=== PATIENT | male | born 1955 | race African-American/Black ===

== ENCOUNTER 2017-06-05 20:37 | Observation (INO) ==
[2017-06-05] MEDS ORDERED: ALUM/MAG/SIMETH/LIDO VISC 1:1 30 ML BOTTLE PO STA (21:01)
[2017-06-05] MEDS ORDERED: ONDANSETRON 4 MG/2 ML VIAL IV STA (21:01)
[2017-06-05] MEDS ORDERED: SODIUM CHLORIDE 0.9% 1,000 ML IV STA (21:01)
[2017-06-05] MEDS ORDERED: PANTOPRAZOLE 40 MG VIAL IV STA (21:01)
[2017-06-05] MEDS ORDERED: HYDROmorphone 2 MG/1 ML VIAL IV STA (21:01)
[2017-06-05 21:12] LABS: Basophils % 0.7 % (0.0-0.8); Eosinophils # 0.1 10*3/uL (0.0-0.87); Hematocrit 26.2 VOL% (42.0-52.0); Hemoglobin 7.8 GM/DL (14.0-18.0); Immature Granulocytes % 0.2 %; Immature Granulocytes Absolute 0.01 #; Lymphocytes # 1.8 10*3/uL (1.4-4.0); Lymphocytes % 39.7 % (21.2-54.2); Mean Corpuscular HGB Conc 29.8 GM/DL (32-36); Mean Corpuscular Hemoglobin 23 PG (27-34); Mean Corpuscular Volume 76.4 FL (87-102); Monocytes # 0.6 10*3/uL (0.11-0.8); Monocytes % 13.6 % (1.7-12.7); Neutrophils % 43.8 % (38.7-73.9); Platelet Count 332 T/CUMM (130-400); Red Blood Count 3.43 MC/CUMM (3.8-5.5); Red Cell Distribution Width 20.3 % (9.3-17.3); White Blood Count 4.5 T/CUMM (4-12)
[2017-06-05] MEDS ORDERED: ONDANSETRON 4 MG/2 ML VIAL ONE (21:15)
[2017-06-05] MEDS ORDERED: ALUM/MAG/SIMETH/LIDO VISC 1:1 30 ML BOTTLE PO ONE (21:15)
[2017-06-05] MEDS ORDERED: PANTOPRAZOLE 40 MG VIAL IV ONE (21:15)
[2017-06-05] MEDS ORDERED: SODIUM CHLORIDE 0.9% 0 ML IV ONE (21:15)
[2017-06-05] MEDS ORDERED: HYDROmorphone 2 MG/1 ML VIAL ONE (21:15)
[2017-06-05 21:22] LABS: Apearance,Urine CLEAR (Clear); Bacteria,Urine Occasional /HPF (Few); Bilirubin,Urine Negative (Negative); Blood, Urine Negative (Negative); Glucose,Urine (UA) Negative (Negative); Hyaline Casts,Urine 34 /LPF (0-3); Ketones,Urine Negative (Negative); Mucus,Urine Occasional /LPF (Occasional); Nitrite,Urine Negative (Negative); Protein,Urine Negative; Squamous Epithelial Cell,Urine Occasional /HPF (0-10); Urine Color Yellow (Yellow); Urine Specific Gravity 1.008 (1.001-1.035); Urine Urobilinogen < 2.0 EU/DL (0.2-1.0); WBC,Urine <1 /HPF (0-6)
--- NOTE | 2017-06-05 21:26 | Emergency Department Note ---
Jarod Wyman Brittany, am scribing for, and in the presence of, Amarjit Geronimo MD 21:06. Juanpablo Wyman Charles R, MD, personally performed the services described in this documentation, ascribed by Tiesha Olivera in my presence, and it is both accurate and complete . Arrival - Arrival Chief Complaint: Abdominal / Flank Pain Stated Complaint: Abd Pain ED Nursing Triage Note: C/C abd pain, right side numbness, chest pain for 3 days. ETOH+ Noncompliant with meds Mode of Arrival: Stretcher Limitations: No Limitations Source: Patient, RN Notes Reviewed Time Seen by Provider: 06/05/17 20:51 - History of Present Illness HPI Narrative: Patient is a 61 y/o black male presenting to the ED via EMS with c/o abdominal pain and chest pain which began 3 days ago. Patient reports also being unable to keep anything down. Patient notes having had some hematemesis and righg sided numbness. He states that he needs to be admitted for overnight admission to show us that he has been vomiting blood. Patient states that he does use EtOH frequently, drinking at the same time each day. Patient goes on to state that he was at one time drinking [employer], but has since cut down to drinking beer only noting he did have a 24 pack of beer earlier today. Denies history of diagnosis of Pancreatitis. We instructed the patient the importance of cessation of EtOH. Patient is noncompliant with daily home medications. Patient states that in the past he has been seen and evaluated at [place]. Patient has no other complaints. Allergies/Adverse Reactions: Allergies Allergy/AdvReac Type Severity Reaction Status Date / Time ketorolac [From Toradol] Allergy Unknown/Unable Verified 06/05/17 20:52 to obtain Home Medications: Home Medications Medication Instructions Recorded Confirmed Type Aspirin EC Tab 81 mg PO DAILY 04/13/17 04/13/17 History Carvedilol [Coreg] 6.25 mg PO BID 04/13/17 04/13/17 History Escitalopram [Lexapro] 10 mg PO DAILY 04/13/17 04/13/17 History Losartan Potassium 1 tablet PO DAILY 04/13/17 04/13/17 History NIFEdipine XL TAB [Procardia Xl] 30 mg PO BEDTIME 04/13/17 04/13/17 History Review of System - Review of System 12 point system: reviewed and no additional remarkable complaints except as stated - Review of System Constitutional: Absent: chills, diaphoresis, fever Cardiovascular: Present: chest pain Gastrointestinal: Present: abdominal pain, nausea, vomiting, hematemesis Genitourinary male: Absent: urgency, dysuria, frequency Neurological: Present: numbness (R sided) Medical,Surgical,& Family Hx - Medical History Cardio: History of: Hypertension, [place] Neurology: History of: Cerebrovascular Accident Endocrine: History of: Diabetes Mellitus (NIDDM), Dyslipidemia Gastrointestinal: History of: Hepatitis - Surgical History Cardiac Surgeries: Sugical HX of: Cardiac Catheterization Orthopedic Surgeries: Surgical HX of;: Orthopedic Surgery (right arm) - Social History Smoking Status: Current every day smoker Frequency of Alcohol Use: Frequently Type of Drug Use: None Exam Vital Signs: Vital Signs Temperature 98.7 F 06/05/17 20:40 Pulse Rate 108 H 06/05/17 20:40 Respiratory Rate 18 06/05/17 20:40 Blood Pressure 100/61 06/05/17 20:40 O2 Sat by Pulse Oximetry 99 06/05/17 21:29 - General General appearance: alert, in no apparent distress, other (smells of EtOH) - Head Head exam: Present: atraumatic, normocephalic, normal inspection - Eye Eye exam: Present: normal appearance, PERRL, EOMI - ENT ENT exam: Present: normal exam, normal oropharynx - Neck Neck exam: Present: normal inspection, full ROM, trachea midline - Chest Chest inspection: Present: normal inspection, symmetric chest wall rise - Respiratory Respiratory exam: Present: rhonchi (bilateral). Absent: normal lung sounds bilaterally - Cardiovascular Cardiovascular exam: Present: regular rate, normal rhythm, normal heart sounds - Abdominal Exam Abdominal exam: Present: soft, tenderness (mid-abdominal to epigastric), hypoactive bowel sounds, other (Nodular feeling liver). Absent: guarding, rebound, normal bowel sounds - Extremities Exam Extremities exam: Present: normal inspection - Back Exam Back exam: Present: normal inspection - Neurological Exam Neurological exam: Present: alert, oriented X3, CN II-XII intact. Absent: motor sensory deficit - Psychiatric Psychiatric exam: Present: normal affect, normal mood - Skin Skin exam: Present: warm, dry Course - Consultations Consultation #1: Hospitalist will admit patient Time: 00:16 Results - Labs CBC & BMP: 06/05/17 20:59 06/05/17 20:59 Lab Results: I have reviewed the patients labs Labs: Laboratory Tests 06/05/17 20:59 WBC 4.5 RBC 3.43 L Hgb 7.8 L Hct 26.2 L MCV 76.4 L MCH 23 L MCHC 29.8 L RDW 20.3 H Plt Count 332 [place] % (Auto) 13.6 H Laboratory Tests 06/05/17 20:59 Urine Color Yellow Urine Appearance Clear Urine pH 5.0 Ur Specific [place] 1.008 Urine Protein Negative Urine Glucose (UA) Negative Urine Ketones Negative Urine Blood Negative Urine Nitrate Negative Urine Bilirubin Negative Urine Urobilinogen < 2.0 H Urine Leukocytes Negative Urine WBC <1 Ur Squamous Epith Cells Occasional Urine Bacteria Occasional Hyaline Casts 34 Urine Mucus Occasional Laboratory Tests 06/05/17 06/05/17 06/05/17 20:59 20:59 20:59 Sodium 145 Potassium 3.5 Chloride 113 H Carbon Dioxide 21 BUN 11 Creatinine 1.00 Glucose 129 H Lactic Acid 2.7 H AST 96 H ALT 81 H Ammonia 41 H Total Creatine Kinase 567 H CK-MB (CK-2) 3.0 Troponin I < 0.015 Albumin 3.3 L Globulin 4.5 H Albumin/Globulin Ratio 0.7 L Urine Color Yellow Urine Appearance Clear Urine pH 5.0 Ur Specific [place] 1.008 Urine Protein Negative Urine Glucose (UA) Negative Urine Ketones Negative Urine Blood Negative Urine Nitrate Negative Urine Bilirubin Negative Urine Urobilinogen < 2.0 H Urine Leukocytes Negative Urine WBC <1 Ur Squamous Epith Cells Occasional Urine Bacteria Occasional Hyaline Casts 34 Urine Mucus Occasional Urine Opiates Screen Negative Ur Barbiturates Screen Negative Ur Phencyclidine Scrn Negative U Amphetamine/Methamph Negative U Benzodiazepines Scrn Negative U Cocaine Metab Screen Negative U Cannabinoids Screen Negative Serum Alcohol 290 Laboratory Tests 06/05/17 20:59 Platelet Estimate Adequate Hypochromasia Slight Poikilocytosis 1+ Anisocytosis 1+ Microcytosis 1+ Spherocytes Few Ovalocytes Few - Diagnostic Findings Procedure: CT Abdomen and Pelvis: report reviewed by me (1. There is mild proximal small bowel wall prominence, likely an artifact due to incomplete distention. True small bowel wall edema/inflammation cannot be excluded completely. 2. There is nonspecific mild prostatic enlargement. 3. There is a small to moderate hiatal hernia.) Disposition Clinical Impression: Gastroenteritis, Abdominal pain, Enteritis, Acute alcohol intoxication, Elevated liver enzymes, Abdominal pain, Anemia, chronic disease, Dehydration Case discussed with: patient Disposition: Still a Patient Condition: Stable Time of Disposition: 00:14
[2017-06-05 21:33] LABS: Ammonia 41 UMOL/L (11-32)
[2017-06-05 21:40] LABS: Alanine Aminotransferase 81 U/L (16-61); Albumin 3.3 G/DL (3.4-5.0); Alkaline Phosphatase 84 U/L (45-117); Amylase 108 U/L (25-115); Aspartate Amino Transferase 96 U/L (0-37); Bilirubin,Total < 0.39 MG/DL (0.2-1.0); Blood Urea Nitrogen 11 MG/DL (7-18); Calcium 8.5 MG/DL (8.5-10.1); Glucose 129 MG/DL (74-106); Magnesium 2.3 MG/DL (1.8-2.4); Osmolality,Calculated 288.7 MOS/KG (273-304); Potassium 3.5 MMOL/L (3.5-5.1); Sodium 145 MMOL/L (136-145); Total Protein 7.8 G/DL (6.4-8.3); Troponin I Only < 0.015 NG/ML (0.00-0.045)
[2017-06-05 21:41] LABS: Barbiturates Screen,Urine Negative (Negative); Benzodiazepines Screen,Urine Negative (Negative); Cannabinoid Screen,Urine Negative (Negative); Lactic Acid 2.7 MMOL/L (0.4-2.0); Opiate Screen,Urine Negative (Negative); Phencyclidine Screen,Urine Negative (Negative)
[2017-06-05 22:30] LABS: Anisocytosis 1+; Hypochromasia Slight; Microcytosis 1+; Ovalocytes Few; Poikilocytosis 1+; Spherocytes Few
[2017-06-05 22:31] LABS: Platelet Estimate Adequate
[2017-06-06] MEDS ORDERED: DOCUSATE SODIUM 100 MG CAPSULE PO PRN (02:40)
[2017-06-06] MEDS ORDERED: ONDANSETRON 4 MG/2 ML VIAL IV PRN (02:40)
[2017-06-06] MEDS ORDERED: ACETAMINOPHEN 325 MG TABLET PO PRN (02:40)
[2017-06-06] MEDS ORDERED: HYDROmorphone 2 MG/1 ML VIAL ONE (03:05)
[2017-06-06] MEDS ORDERED: HYDROmorphone 2 MG/1 ML VIAL IV ONE (03:24)
[2017-06-06] MEDS ORDERED: LORazepam 2 MG/1 ML VIAL IV PRN (04:13)
[2017-06-06] MEDS ORDERED: PNEUMOCOCCAL VACCINE (23 VALENT) 0.5 ML VIAL IM ONE (04:25)
[2017-06-06] MEDS ORDERED: guaiFENesin 200 MG/10 ML UDCUP PO PRN (04:48)
--- NOTE | 2017-06-06 05:30 | Hospitalist History & Physical ---
<Suad Knott Wilbur - Last Filed: 06/06/17 06:11> Assessment and Plan - Time spent with patient Time spent with patient: Greater than 30 minutes (1) Abdominal pain Status: Acute Assessment and plan: Admit for hospitalist services. Admit to monitored bed for observation. Consult GI. H. pylori. Ammonia level. CBC and BMP in AM. Protonix 40 mg daily. Carafate 1 gram ACHS. Zofran 4 mg IV Q4 hours PRN. Current Visit: Yes (2) Weakness of right side of body Status: Acute Assessment and plan: CT head w/o contrast. Carotid US. Echo. Lipid panel. Serial Troponins. Neuro checks Q4 hours. Current Visit: Yes (3) Alcohol abuse Status: Acute Assessment and plan: Folic acid 1 gram daily. Thiamine 100 mg daily. Multivitamin 1 tab daily. Check magnesium levels. Ativan 1 mg IV Q4 hours PRN for signs or symptoms of alcohol withdrawal. No IV fluids at this time. Patient was given a bolus of fluids in the ED and appears to be coherent, oriented and rational. Current Visit: Yes (4) Essential hypertension Status: Chronic Assessment and plan: Continue home medications. Cardiac diet. Current Visit: Yes (5) Depression Status: Chronic Assessment and plan: Continue home dose of Lexapro 10 mg daily. Current Visit: No (6) DVT prophylaxis Status: Acute Assessment and plan: Lovenox 40 mg SQ daily. Current Visit: Yes History of Present Illness Chief complaint: Abdominal pain History of present illness: Mr. Bravo is a 61 year old male with a history of [place] x 2, CVA, HTN and alcohol abuse who presents to the ED with complaints of diffuse abdominal pain and tenderness x 2 weeks with nightly episodes of vomiting that occur around 01:00- 02:00. He reports that the emesis is sometimes blood tinged and sometimes contains dark blood with clots. He further complains of numbness and weakness of right upper and lower extremities, left foot numbness, right eye and lip twitching, right lateral chest wall pain x 3 days and excessive flatulence. He reports that he only drinks alcohol occasionally, however, his blood alcohol level was 290. His lactic acid was 2.7. CT of abdomen and pelvis showed mild proximal small bowel wall prominence, likely an artifact due to incomplete distention, however, true small bowel wall edema/inflammation could not be excluded completely; nonspecific mild prostatic enlargement; and a small to moderate hiatal hernia. In the ED, he was given a GI cocktail, bolus of fluids , pain and nausea medications. Hospitalist services were consulted and the patient will be admitted for observation. Home Medications Medication Instructions Recorded Confirmed Type Aspirin EC Tab 81 mg PO DAILY 04/13/17 06/06/17 History Carvedilol [Coreg] 6.25 mg PO BID 04/13/17 06/06/17 History Escitalopram [Lexapro] 10 mg PO DAILY 04/13/17 06/06/17 History Losartan Potassium 1 tablet PO DAILY 04/13/17 06/06/17 History NIFEdipine XL TAB [Procardia Xl] 30 mg PO BEDTIME 04/13/17 06/06/17 History Allergies Allergy/AdvReac Type Severity Reaction Status Date / Time ketorolac [From Toradol] Allergy Unknown/Unable Verified 06/06/17 03:46 to obtain Medical,Surgical,& Family Hx - Medical History Cardio: History of: Hypertension, [place] Psychological: History of: Psychiatric/Substance Abuse Tx (Alcohol) Neurology: History of: Cerebrovascular Accident Endocrine: History of: Diabetes Mellitus (NIDDM), Dyslipidemia Gastrointestinal: History of: Hepatitis - Surgical History Cardiac Surgeries: Sugical HX of: Cardiac Catheterization Abdominal Surgeries: Patient denies: Abdominal Surgery Orthopedic Surgeries: Surgical HX of;: Orthopedic Surgery (right arm and left foot) - Social History Smoking Status: Current some day smoker (cigars) Have you smoked in the last 12 months: Yes Frequency of Alcohol Use: Frequently Type of Drug Use: None Marital Status: Lives With:: Alone Functional capacity: independent ambulation 12 point system: reviewed and no additional remarkable complaints except as stated - Constitutional Constitutional: Present: weakness - EENT Eyes: Absent: blurry vision, diplopia, loss of vision Ears: Absent: decreased hearing, ear discharge, ear pain Nose, mouth and throat: Absent: nasal congestion, sore throat - Cardiovascular Cardiovascular: Absent: chest pain at rest, dyspnea, edema, orthopnea, palpitations - Respiratory Respiratory: Present: cough. Absent: dyspnea - Gastrointestinal Gastrointestinal: Present: abdominal pain, hematemesis - Genitourinary Genitourinary: Absent: dysuria, urinary frequency - Musculoskeletal Musculoskeletal: Present: muscle weakness. Absent: arthralgias, joint swelling , myalgias - Neurological Neurological: Present: abnormal gait, numbness. Absent: paresthesias - Psychiatric Psychiatric: Present: depression - Endocrine Endocrine: Absent: polydipsia, polyphagia, polyuria - Hematologic/Lymphatic Hematologic/Lymphatic: Absent: easy bleeding, easy bruising Exam - Constitutional Vitals: Period Temp Pulse Resp BP Sys/Torres Pulse Ox Last 24 Hr 97.4 F-98.7 F 88-108 18-20 100-175/61-89 96-99 Exam: Constitutional System: Awake, alert and oriented x 3. No distress. No tremulousness. Head: Normocephalic, atraumatic. Ears, Nose and Throat System: No pain or tenderness. No epistaxis or discharge Eyes System: Pupils equal, round, and reactive. Extraocular muscles intact. Neck: Supple, without adenopathy, No jugular venous distention. No thyromegaly, neck mass, or prior surgery apparent. Respiratory System: Coarse breath sounds bilaterally. Loose sounding cough noted. Cardiovascular System: Heart with regular rate and rhythm. No murmur. GI System: Abdomen soft, Diffusely tender. Normo active bowel sounds present. Musculoskeletal System: Limbs with no pedal edema. Full distal pulses. Normal capillary refill. Contracted right 4th and 5th fingers. Neurological System: No discernable sensory deficit. No aphasia. Strength 3/5 on right upper and lower extremities. Psychiatric System: Conversation is rational. Results - Labs CBC & BMP: 06/05/17 20:59 06/05/17 20:59 Lab Results: I have reviewed the past 24 hour labs <Patrick Bonner - Last Filed: 06/06/17 06:48> Assessment and Plan (1) Lactic acid acidosis Status: Acute Assessment and plan: - IV fluids given in ER - will monitor Current Visit: Yes (2) Anemia, chronic disease Status: Acute Assessment and plan: - chronic - FOBT and anemia panel ordered - will monitor Current Visit: Yes History of Present Illness History of present illness: Mr. Bravo is a 61 year old male Exam - Constitutional Vitals: Period Temp Pulse Resp BP Sys/Torres Pulse Ox Last 24 Hr 97.4 F-98.7 F 88-108 18-20 100-175/61-89 96-99 Results - Labs CBC & BMP: 06/06/17 05:42 06/05/17 20:59
[2017-06-06 06:29] LABS: Basophils % 0.5 % (0.0-0.8); Eosinophils # 0.1 10*3/uL (0.0-0.87); Eosinophils % 2.6 % (0.00-10.9); Hematocrit 24.8 VOL% (42.0-52.0); Hemoglobin 7.1 GM/DL (14.0-18.0); Lymphocytes # 1.5 10*3/uL (1.4-4.0); Lymphocytes % 40.3 % (21.2-54.2); Mean Corpuscular HGB Conc 28.6 GM/DL (32-36); Mean Corpuscular Hemoglobin 22 PG (27-34); Mean Corpuscular Volume 77.7 FL (87-102); Mean Platelet Volume 10.7 FL (9.6-12.0); Monocytes # 0.8 10*3/uL (0.11-0.8); Monocytes % 19.6 % (1.7-12.7); Neutrophils # 1.4 10*3/uL (1.4-7.4); Platelet Count 287 T/CUMM (130-400); Red Blood Count 3.19 MC/CUMM (3.8-5.5); Red Cell Distribution Width 20.2 % (9.3-17.3); White Blood Count 3.8 T/CUMM (4-12)
--- NOTE | 2017-06-06 06:38 | CT Report ---
CT of the abdomen and pelvis with intravenous contrast. No oral contrast was administered. Indication: Generalized abdominal pain. There is limitation secondary to patient motion. No previous study. There is a preliminary report from [facility]. 100 cc Omni 350. Axial images were obtained with sagittal and coronal 2-D reconstructions. The heart is normal in size. Hypoaeration changes are noted within the lung bases. No pericardial or pleural effusion. There is a 4 cm hiatal hernia. There is mild fatty infiltration of the liver. There is no intrahepatic biliary ductal dilatation. There is no splenic or adrenal enlargement. The kidneys are normal in size, location, and contour. There is a nonobstructing calculus at the midpole of the right kidney, 4 mm. No hydronephrosis. No focal masses. The urinary bladder presents a normal appearance. The prostate gland is borderline enlarged. There is no free air or free fluid seen within the peritoneal cavity. There is moderate calcific plaque in a normal caliber abdominal aorta, extending into the iliac arteries. The gastric contour is normal and contains food material. Some of the loops of small intestine appear mildly dilated with slight wall thickening. This could be due to nondistention or mild enteritis. Although the patient reports a previous appendectomy, a normal-appearing appendix is visualized. The terminal ileum presents a normal appearance. The colon is not dilated. It contains moderate fecal material. No evidence of obstruction. There is no inguinal or iliac chain lymphadenopathy. There is no retroperitoneal or mesenteric lymphadenopathy. Along the ventral abdominal wall, there are 2 hernias containing only fat. Degenerative changes are noted along the spinal column. Impression: 1. Medium-sized hiatal hernia. 2. Fatty infiltration of the liver. 3. Mild dilatation and wall thickening is suspected involving loops of small intestine proximally. This could be due to enteritis. 4. Nonobstructing right renal calculus. 5. Borderline prominence of the prostate gland. The CT exam was performed using one or more of the following dose reduction techniques: Automated exposure control, adjustment of the mA and/or kV according to patient size, or use of iterative reconstruction technique. PROCEDURE INTERPRETED AT [facility] DEPARTMENT OF RADIOLOGY Final Report Signed by: Dr. Lina Kenney
[2017-06-06 06:50] LABS: Lactic Acid 1.7 MMOL/L (0.4-2.0)
[2017-06-06 06:55] LABS: Eosinophils 5 % (0-10); Lymphocytes 39 % (20-55); Segmented Neutrophils 43 % (50-85); Total Cells Counted 100
[2017-06-06 06:56] LABS: Hypochromasia 1+; Microcytosis 1+; Ovalocytes Slight; Platelet Estimate Adequate
[2017-06-06 06:59] LABS: Osmolality,Calculated 287.6 MOS/KG (273-304)
[2017-06-06 07:01] LABS: Risk Ratio 2.24
[2017-06-06 07:04] LABS: Troponin I Only < 0.015 NG/ML (0.00-0.045)
[2017-06-06 07:09] LABS: Magnesium 2.2 MG/DL (1.8-2.4); Thyroid Stimulating Hormone 2.04 uIU/ml (0.358-3.74)
--- NOTE | 2017-06-06 07:23 | XRay Report ---
2 view abdomen. Indication: Generalized abdominal pain. The heart is normal in size. The lung bases are clear. The bowel gas pattern is within the range of normal. No evidence of obstruction. No abnormal calcifications over the renal outlines. Degenerative changes within the spinal column. Impression: No acute abnormality. PROCEDURE INTERPRETED AT [facility] DEPARTMENT OF RADIOLOGY Final Report Signed by: Dr. Lina Kenney
--- NOTE | 2017-06-06 07:47 | CT Report ---
CT of the head without contrast. Indication: Right-sided numbness. Comparison: May 18, 2017. Mild asymmetry of the ventricles, within the range of normal and stable. No mass effect, midline shift, or area of hemorrhage. No cortical infarcts are seen at this time. The calvarium is intact. Mild polypoid mucosal thickening in the right maxillary sinus. The mastoid air cells are clear. Impression: No acute abnormality or interval change is seen. The CT exam was performed using one or more of the following dose reduction techniques: Automated exposure control, adjustment of the mA and/or kV according to patient size, or use of iterative reconstruction technique. PROCEDURE INTERPRETED AT [facility] DEPARTMENT OF RADIOLOGY Final Report Signed by: Dr. Lina Kenney
--- NOTE | 2017-06-06 07:51 | EKG Report ---
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
[2017-06-06] MEDS: SUCRALFATE 1 GM/10 ML UDCUP PO SCH ×4 (07:57→20:55)
--- NOTE | 2017-06-06 08:00 | XRay Report ---
2 view chest. Indication: Cough. Comparison: May 18, 2017. The heart is normal in size. The pulmonary vasculature is normal. The lung sierra are slightly hyperexpanded. Interstitial markings are mildly prominent but stable. No consolidation, pneumothorax, or pleural effusion. Healed rib fracture of the left upper lateral thorax. Impression: Chronic lung changes. No acute abnormality. PROCEDURE INTERPRETED AT [facility] DEPARTMENT OF RADIOLOGY Final Report Signed by: Dr. Lina eKnney
[2017-06-06] MEDS: LOSARTAN 25 MG TABLET PO SCH (08:22)
[2017-06-06] MEDS: MULTIVITAMIN (CENTRUM) TABLET PO SCH (08:22)
[2017-06-06] MEDS: PANTOPRAZOLE 40 MG TABLET PO SCH (08:22)
[2017-06-06] MEDS: ESCITALOPRAM 10 MG TABLET PO SCH (08:23)
[2017-06-06] MEDS: CARVEDILOL 6.25 MG TABLET PO SCH ×2 (08:23→20:54)
[2017-06-06] MEDS: FOLIC ACID 1 MG TABLET PO SCH (08:23)
[2017-06-06 08:30] LABS: Basophils % 0.5 % (0.0-0.8); Eosinophils # 0.1 10*3/uL (0.0-0.87); Eosinophils % 2.5 % (0.00-10.9); Hematocrit 26.7 VOL% (42.0-52.0); Hemoglobin 7.6 GM/DL (14.0-18.0); Immature Granulocytes % 0.3 %; Immature Granulocytes Absolute 0.01 #; Lymphocytes # 1.2 10*3/uL (1.4-4.0); Lymphocytes % 30.5 % (21.2-54.2); Mean Corpuscular HGB Conc 28.5 GM/DL (32-36); Mean Corpuscular Hemoglobin 22 PG (27-34); Mean Corpuscular Volume 78.3 FL (87-102); Mean Platelet Volume 10.8 FL (9.6-12.0); Monocytes # 0.7 10*3/uL (0.11-0.8); Monocytes % 17.8 % (1.7-12.7); Neutrophils # 1.9 10*3/uL (1.4-7.4); Neutrophils % 48.4 % (38.7-73.9); Platelet Count 319 T/CUMM (130-400); Red Blood Count 3.41 MC/CUMM (3.8-5.5); Red Cell Distribution Width 20.2 % (9.3-17.3); White Blood Count 3.9 T/CUMM (4-12)
[2017-06-06 08:50] LABS: Eosinophils 4 % (0-10); Hypochromasia 1+; Lymphocytes 33 % (20-55); Segmented Neutrophils 52 % (50-85); Total Cells Counted 100
[2017-06-06 08:51] LABS: Microcytosis 1+; Ovalocytes Slight; Platelet Estimate Normal
[2017-06-06] MEDS ORDERED: ENOXAPARIN 40 MG/0.4 ML SYRINGE SUBCUT SCH (09:00)
[2017-06-06 09:03] LABS: Troponin I Only < 0.015 NG/ML (0.00-0.045)
[2017-06-06] MEDS: THIAMINE 100 MG TABLET PO SCH (09:06)
[2017-06-06 09:24] LABS: Folate 11.4 NG/ML (5.4-24.0); Vitamin B12 466 PG/ML (211-911)
--- NOTE | 2017-06-06 09:26 | Ultrasound Report ---
Carotid artery ultrasound Indication: Right-sided paresthesias Comparison: None available Color Doppler flow and spectral analysis was performed. Findings: Minimal amount of atherosclerotic plaque is present in both proximal internal carotid arteries. Right peak systolic velocity: Right CCA:84.7 Right proximal Internal Carotid Artery is 56.0 cm/s. Ratio of flow is 0.7 Right distal Internal Carotid is 59.9 cm/s . Left peak systolic velocity: Left CCA:113.3 Left proximal Internal carotid Artery is 48.1 cm/s . Ratio of flow is 0.6 Left distal Internal carotid Artery is 72.9cm/s Bilateral antegrade vertebral flow is seen. Impression: No evidence of hemodynamically significant stenosis is seen, 0-49% estimated stenosis. Consensus conference on the carotid ultrasound criteria used. Ultrasound images were captured and stored. PROCEDURE INTERPRETED AT [facility] DEPARTMENT OF RADIOLOGY Final Report Signed by: Dr. Estiven Rodriguez
[2017-06-06 09:45] LABS: Sedimentation Rate-Westergren 57 MM/HR (0-20)
[2017-06-06 11:28] LABS: Troponin I Only < 0.015 NG/ML (0.00-0.045)
--- NOTE | 2017-06-06 13:23 | Hospitalist Progress Note ---
Assessment and Plan (1) Anemia, chronic disease Status: Acute Assessment and plan: Impression: 1. Abdominal pain with anemia and BC ingestion; rule out upper GI bleed 2. History suggestive of polysubstance abuse 3. Hypertension Plan: GI evaluation. He probably needs at least upper endoscopy. Follow serial hemoglobins. Home medications have been ordered. This note was completed using [employer] voice recognition software. There may be grinding supervisor errors as a result. Current Visit: Yes Hospitalist: Subjective Interval history: Follow-up abdominal pain. The patient reports some abdominal pain that is generalized for the past week or so. He reports a prior history of alcohol use but says that he was in [place] earlier this year, and quit drinking liquor. He says that he consumes beer on occasion, with his last consumption being the day prior to admission. He reports some generalized abdominal pain that tends to come and go without any exacerbating or relieving factors. He reports that he takes BC every day for chronic aches and pains. He describes black stools for the past several days, but no bright red blood in stool. He says that he has vomited blood on a few occasions. CBC in the emergency room shows microcytic anemia. He also reports some vague right sided tingling and weakness. He denies any speech abnormality, headache, or visual disturbance. Exam - Constitutional Vitals: Period Temp Pulse Resp BP Sys/Torres Pulse Ox Last 24 Hr 97.4 F-98.7 F 69-108 18-20 100-175/61-105 95-100 Vital signs are noted above. Heart is regular with no murmur or gallop. Lungs are clear with no rales or wheezes. Abdomen is soft with good bowel sounds. He has some generalized tenderness, most pronounced in the suprapubic area. He is awake and alert. He moves all 4 extremities with equal power and strength. He appears to have a Dupuytren's contracture of the fourth and fifth digits of the right hand. Results - Labs CBC & BMP: 06/06/17 07:59 06/06/17 05:42 Lab Results: I have reviewed the past 24 hour labs Specialty Discharge - Follow Up or Referrals
--- NOTE | 2017-06-06 15:09 | ECHO Report ---
Hilario Bravo 06/06/2017 Exam Date: 09:21 Referring Physician: Lula Thorpe Technologist: ADALBERTO Age: 61 Ht (in): 75 Wt (lb): 208 MExam Location: [facility] Gender: Echo [id number]: HTN, Rt. Side weakness, abd. pain, Indications:Chest pain, alcohol abuse BP: 151 / 99 HR: 334 SinusRhythm: goodTechnical Quality: IMPRESSIONS Left ventricular ejection fraction is estimated at 55 %. Mild concentric left ventricular hypertrophy. Grade 2 diastolic dysfunction. No regional wall motion abnormality. Mild mitral regurgitation. Tricuspid regurgitation velocities suggest a RVSP of 25.0 mmHg + RAP. MEASUREMENTS (Male / Female) Normal Values 2D ECHO LV Diastolic Diameter PLAX 4.3 cm 4.2 - 5.9 / 3.9 - 5.3 cm LV Systolic Diameter PLAX 3.3 cm LV Fractional Shortening PLAX 23.0 % IVS Diastolic Thickness 1.2 cm 0.6 - 1.0 / 0.6 - 0.9 cm LVPW Diastolic Thickness 1.2 cm 0.6 - 1.0 / 0.6 - 0.9 cm Aortic Root Diameter 2.5 cm LA Systolic Diameter LX 3.6 cm 3.0 - 4.0 / 2.7 - 3.8 cm DOPPLER TR Peak Velocity 250.0 cm/s TR Peak Gradient 25.0 mmHg FINDINGS Left Ventricle Normal left ventricular cavity size. Mild concentric left ventricular hypertrophy. Left ventricular ejection fraction is estimated at 55 %. Grade 2 diastolic dysfunction. No regional wall motion abnormality. Right Ventricle Normal right ventricular size. Right Atrium Normal right atrial size. Left Atrium Normal left atrial size. Mitral Valve Mild mitral regurgitation. Aortic Valve Trileaflet aortic valve. Trace to mild aortic valve regurgitation. Tricuspid Valve Morphologically normal tricuspid valve. Trace tricuspid valve regurgitation. Tricuspid regurgitation velocities suggest a RVSP of 25.0 mmHg + RAP. Pulmonic Valve Morphologically normal pulmonic valve. Pericardium No pericardial effusion. Aorta Normal size aortic root and proximal ascending aorta. Radha Chery (Electronically Signed) 06 June 2017 Final Date: 15:08
--- NOTE | 2017-06-06 15:15 | Gastrointestinal Consult Note ---
Assessment and Plan (1) Abdominal pain Status: Acute Assessment and plan: 06/06-Three to four week history of abdominal pain with nausea and vomiting with reports of coffee ground emesis, melena. Long hx of alcohol and drug use with multiple BC powders daily x years. 05/10. BUN/Cr ratio unremarkable. Mildly elevated LFTs. CT of abdomen noted as below. Stools for occult blood pending. Plan for EGD tomorrow to further evaluate. Plan and addendum to follow by Dr Fleming. Current Visit: Yes History of Present Illness Chief complaint: Melena, abd pain History of present illness: Mr. Bravo is a 61 year old male who was admitted to the hospital with onset of abdominal pain and melena. Pt has a history of HTN, CVA, [place] X 2, and alcohol use. Pt states that he has not felt well the last several days to couple of weeks. He states that appoximately 3-4 weeks ago he began noticing he was having dark tarry stools. He also noted that he has had abdominal pain in his mid abdomen, that radiates across, that at times is associated with meal intake. He also had onset of nausea and vomiting several days ago with blood streaked emesis as well as coffee ground appearing emesis. He also states he has noticed an increase in belching, bloating and GERD recently. Pt states he has never had pain like this before. He presented to our facility for further workup at that time. Pt states he does drink but not daily however elevated serum alcohol levels on admission. He has a history of drug use in the past. States he does take several BC powders daily and has done so for years. CT of abdomen with IV contrast noted to show fatty liver, mildly dilation and wall thickening involving loops of small intestine proximally. He was also noted to have elevated lactic acid level on admission however this has now normalized. Ferritin level noted at 6.6. AST 96, ALT 81, ammonia 30. He has never had endoscopy in the past before. No plans noted for transfusion at this time. Home Medications Medication Instructions Recorded Confirmed Type Aspirin EC Tab 81 mg PO DAILY 04/13/17 06/06/17 History Carvedilol [Coreg] 6.25 mg PO BID 04/13/17 06/06/17 History Escitalopram [Lexapro] 10 mg PO DAILY 04/13/17 06/06/17 History Losartan Potassium 1 tablet PO DAILY 04/13/17 06/06/17 History NIFEdipine XL TAB [Procardia Xl] 30 mg PO BEDTIME 04/13/17 06/06/17 History Allergies Allergy/AdvReac Type Severity Reaction Status Date / Time ketorolac [From Toradol] Allergy Unknown/Unable Verified 06/06/17 03:46 to obtain Medical,Surgical,& Family Hx - Medical History Cardio: History of: Hypertension, [place] Psychological: History of: Psychiatric/Substance Abuse Tx (Alcohol) Neurology: History of: Cerebrovascular Accident Endocrine: History of: Diabetes Mellitus (NIDDM), Dyslipidemia Gastrointestinal: History of: Hepatitis - Surgical History Cardiac Surgeries: Sugical HX of: Cardiac Catheterization Abdominal Surgeries: Patient denies: Abdominal Surgery Orthopedic Surgeries: Surgical HX of;: Orthopedic Surgery (right arm and left foot) - Social History Smoking Status: Current some day smoker (cigars) Frequency of Alcohol Use: Frequently Type of Drug Use: None 12 point system: reviewed and no additional remarkable complaints except as stated - Constitutional Constitutional: Present: as per HPI - EENT Eyes: Present: as per HPI Ears: Present: as per HPI Nose, mouth and throat: Present: as per HPI - Cardiovascular Cardiovascular: Present: as per HPI - Respiratory Respiratory: Present: as per HPI - Gastrointestinal Gastrointestinal: Present: as per HPI, abdominal pain, bloating, dyspepsia, dysphagia, heartburn, hematemesis, melena, nausea, vomiting - Genitourinary Genitourinary: Present: as per HPI - Musculoskeletal Musculoskeletal: Present: as per HPI - Neurological Neurological: Present: as per HPI - Psychiatric Psychiatric: Present: as per HPI - Endocrine Endocrine: Present: as per HPI - Hematologic/Lymphatic Hematologic/Lymphatic: Present: as per HPI Exam - Constitutional Vitals: Period Temp Pulse Resp BP Sys/Torres Pulse Ox Last 24 Hr 97.4 F-98.7 F 69-108 18-20 100-175/61-105 95-100 General appearance: normal weight, no acute distress - Head Head exam: Present: normal inspection, normocephalic - Eye Eye exam: Present: other (lids and conjunctiva unremarkable). Absent: scleral icterus - ENT ENT exam: Present: normal exam, normal oropharynx - Neck Neck exam: Present: normal inspection - Respiratory Respiratory exam: Present: clear to auscultation bilaterally. Absent: rales, rhonchi, wheezes - Cardiovascular Cardiovascular exam: Present: regular rate and rhythm. Absent: diastolic murmur , JVD, systolic murmur - GI/Abdominal GI/Abdominal exam: Present: normal bowel sounds, soft. Absent: ascites, distended, mass, organomegaly, tenderness - Extremities Exam Extremities exam: Present: normal inspection, full ROM - Back Exam Back exam: Present: normal inspection - Neurological Exam Neurological exam: Present: alert, oriented X3 - Psychiatric Psychiatric exam: Present: normal affect, normal mood - Skin Skin exam: Present: normal color, warm, dry Results - Labs CBC & BMP: 06/06/17 07:59 06/06/17 05:42 Lab Results: I have reviewed the past 24 hour labs - Diagnostic Findings Procedure: CT Abdomen and Pelvis: report reviewed by me Specialty Discharge - Follow Up or Referrals
[2017-06-07 06:44] LABS: Hemoglobin A1 (Alkaline) 97.9 % (96.5-98.5); Hemoglobin A2 (Alkaline) 2.1 % (1.5-3.5)
[2017-06-07] MEDS: SUCRALFATE 1 GM/10 ML UDCUP PO SCH ×2 (07:42→11:04)
[2017-06-07 07:57] LABS: Basophils % 0.5 % (0.0-0.8); Eosinophils # 0.1 10*3/uL (0.0-0.87); Eosinophils % 2.7 % (0.00-10.9); Hematocrit 27.6 VOL% (42.0-52.0); Hemoglobin 8.1 GM/DL (14.0-18.0); Immature Granulocytes % 0.3 %; Immature Granulocytes Absolute 0.01 #; Lymphocytes # 0.9 10*3/uL (1.4-4.0); Lymphocytes % 23.9 % (21.2-54.2); Mean Corpuscular HGB Conc 29.3 GM/DL (32-36); Mean Corpuscular Hemoglobin 22 PG (27-34); Mean Corpuscular Volume 75.8 FL (87-102); Mean Platelet Volume 10.3 FL (9.6-12.0); Monocytes # 0.6 10*3/uL (0.11-0.8); Monocytes % 15.6 % (1.7-12.7); Neutrophils # 2.1 10*3/uL (1.4-7.4); Platelet Count 279 T/CUMM (130-400); Red Blood Count 3.64 MC/CUMM (3.8-5.5); Red Cell Distribution Width 19.8 % (9.3-17.3); White Blood Count 3.7 T/CUMM (4-12)
[2017-06-07 08:20] LABS: Eosinophils 4 % (0-10); Giant Platelets Few; Hypochromasia 1+; Lymphocytes 20 % (20-55); Microcytosis Slight; Platelet Estimate Adequate; Segmented Neutrophils 61 % (50-85); Total Cells Counted 100
[2017-06-07 08:50] LABS: Osmolality,Calculated 275.5 MOS/KG (273-304); Potassium 3.6 MMOL/L (3.5-5.1)
[2017-06-07] MEDS: LOSARTAN 25 MG TABLET PO SCH (10:55)
[2017-06-07 10:56] VITALS: BP 161/100
[2017-06-07] MEDS: ESCITALOPRAM 10 MG TABLET PO SCH (11:03)
[2017-06-07] MEDS: CARVEDILOL 6.25 MG TABLET PO SCH (11:03)
[2017-06-07] MEDS: FOLIC ACID 1 MG TABLET PO SCH (13:05)
[2017-06-07] MEDS: THIAMINE 100 MG TABLET PO SCH (13:05)
[2017-06-07] MEDS: PANTOPRAZOLE 40 MG TABLET PO SCH (13:05)
[2017-06-07] MEDS: MULTIVITAMIN (CENTRUM) TABLET PO SCH (13:05)
--- NOTE | 2017-06-07 14:50 | Discharge Summary ---
Hospital Course - Hospital Course Hospital Course: The patient was admitted for evaluation of possible GI bleed. On the way to endoscopy, he decided to leave the hospital AGAINST MEDICAL ADVICE. Diagnosis - Discharge Diagnosis (1) Anemia, chronic disease Status: Acute Specialty Discharge - Follow Up or Referrals Discharge Plan - Discharge Data Disposition: Left Against Medical Advice - Discharge Medications No Action Aspirin EC Tab 81 mg PO DAILY Losartan Potassium 1 tablet PO DAILY Escitalopram [Lexapro] 10 mg PO DAILY NIFEdipine XL TAB [Procardia Xl] 30 mg PO BEDTIME Carvedilol [Coreg] 6.25 mg PO BID - Follow Up or Referral - Forms/Instructions Instructions: Gastroenteritis (DC), Acute Abdominal Pain (DC) Exam - Constitutional Vitals: Period Temp Pulse Resp BP Sys/Torres Pulse Ox Last 24 Hr 97.3 F-98.1 F 60-78 18-20 157-174/79-100 97-100 The patient left AMA Discharge Results Labs on day of discharge: Labs from last 24 hours 06/07/17 06/07/17 06/06/17 07:50 07:50 07:59 WBC 3.7 L RBC 3.64 L Hgb 8.1 L Hct 27.6 L MCV 75.8 L MCH 22 L MCHC 29.3 L RDW 19.8 H Plt Count 279 MPV 10.3 Neut % (Auto) 57.0 Lymph % (Auto) 23.9 [place] % (Auto) 15.6 H Eos % (Auto) 2.7 Baso % (Auto) 0.5 Neut # (Auto) 2.1 Lymph # (Auto) 0.9 L [place] # (Auto) 0.6 Eos # (Auto) 0.1 Baso # (Auto) 0.0 Total Counted 100 Immature Gran % 0.3 Nucleated RBC % 0.0 Immature Gran # 0.01 Segmented Neutrophils 61 Lymphocytes 20 Monocytes 15 Eosinophils 4 Nucleated RBCs # 0.00 Anemia Panel Interp Platelet Estimate Adequate Giant Platelets Few Immature Plt Fraction 0.0 Hypochromasia 1+ Microcytosis Slight Hemoglobin A1 97.9 Hemoglobin A2 2.1 Hgb ELP Interp See comment Sodium 139 Potassium 3.6 Chloride 104 Carbon Dioxide 28 Anion Gap 10.6 BUN 9 Creatinine 0.70 GFR Calculation 154 BUN/Creatinine Ratio 12.00 Glucose 92 Calculated Osmolality 275.5 Calcium 9.0 06/06/17 07:59 WBC RBC Hgb Hct MCV MCH MCHC RDW Plt Count MPV Neut % (Auto) Lymph % (Auto) [place] % (Auto) Eos % (Auto) Baso % (Auto) Neut # (Auto) Lymph # (Auto) [place] # (Auto) Eos # (Auto) Baso # (Auto) Total Counted Immature Gran % Nucleated RBC % Immature Gran # Segmented Neutrophils Lymphocytes Monocytes Eosinophils Nucleated RBCs # Anemia Panel Interp See comment Platelet Estimate Giant Platelets Immature Plt Fraction Hypochromasia Microcytosis Hemoglobin A1 Hemoglobin A2 Hgb ELP Interp Sodium Potassium Chloride Carbon Dioxide Anion Gap BUN Creatinine GFR Calculation BUN/Creatinine Ratio Glucose Calculated Osmolality Calcium DS: Provider Date of admission: 06/06/17 02:40 Primary care physician: . No PCP Attending physician on admission: aPtrick Bonner MD Consults: 06/06/17 13:19 Consult to Physician [CONS] Routine Comment: melena, anemia Consulting Provider: Alexey Fleming Consulting Provider Notified: Yes When should Consulting Provider be notified: Now Consult to Specialist Group: Gastroenterology When should Consulting Provider be notified: Now Person Notified: sabine power Date Notified: 06/06/17 Time Notified: 14:29 Discharging clinician: Maldonado Quinteros MD Expected date of discharge: 06/07/17
== END 2017-06-07 11:40 | disposition left against medical advice (07) ==
LOC: EDUNIT# → EDBD → N.ED 20:37 → N.EDINP 20:37 → SUATTDRO 06-06 02:40 → N.3E 06-06 03:16
PROVIDERS: ADMIT Family Medicine; ATTEND Internal Medicine Geriatric Medicine

== ENCOUNTER 2017-06-09 07:49 | Inpatient (IN) ==
[2017-06-09] MEDS ORDERED: ONDANSETRON 4 MG/2 ML VIAL IV STA (09:25)
[2017-06-09] MEDS ORDERED: SODIUM CHLORIDE 0.9% 1,000 ML IV STA (09:25)
[2017-06-09] MEDS ORDERED: ONDANSETRON 4 MG/2 ML VIAL ONE (09:39)
--- NOTE | 2017-06-09 09:49 | XRay Report ---
History is abdominal pain Chest, one view Comparison 06/06/2017 Heart is normal in size. Hilar contours are unchanged Lung markings unchanged with the confluent overlying shadows the left lung apex. Chronic left rib fracture present Impression: Stable appearance of the chest PROCEDURE INTERPRETED AT [facility] DEPARTMENT OF RADIOLOGY Final Report Signed by: Dr. Radha Kenney
--- NOTE | 2017-06-09 09:50 | XRay Report ---
XR abdomen 2V Indication: Abdominal pain. Abdomen 3 views: No small bowel dilatation. Normal amount of stool and gas projects over the colon, without dilatation. No evidence of free air. No abnormal calcifications or masses. Impression: Negative bowel gas pattern. PROCEDURE INTERPRETED AT [facility] DEPARTMENT OF RADIOLOGY Final Report Signed by: Deyvi Sanders M.D.
[2017-06-09 10:14] LABS: Basophils % 0.4 % (0.0-0.8); Eosinophils # 0.1 10*3/uL (0.0-0.87); Eosinophils % 2.2 % (0.00-10.9); Hematocrit 26.9 VOL% (42.0-52.0); Immature Granulocytes % 0.4 %; Immature Granulocytes Absolute 0.02 #; Lymphocytes # 1.1 10*3/uL (1.4-4.0); Lymphocytes % 22.8 % (21.2-54.2); Mean Corpuscular HGB Conc 29.7 GM/DL (32-36); Mean Corpuscular Hemoglobin 23 PG (27-34); Mean Corpuscular Volume 75.8 FL (87-102); Mean Platelet Volume 10.1 FL (9.6-12.0); Monocytes # 0.9 10*3/uL (0.11-0.8); Monocytes % 17.2 % (1.7-12.7); Neutrophils # 2.8 10*3/uL (1.4-7.4); Platelet Count 335 T/CUMM (130-400); Red Blood Count 3.55 MC/CUMM (3.8-5.5); Red Cell Distribution Width 20.8 % (9.3-17.3)
[2017-06-09 10:38] LABS: Atypical Lymphocytes Few; Band Neutrophils 1 % (0-10); Eosinophils 4 % (0-10); Hypochromasia 1+; Lymphocytes 26 % (20-55); Microcytosis 1+; Ovalocytes Slight; Segmented Neutrophils 55 % (50-85); Total Cells Counted 100
[2017-06-09 10:39] LABS: Platelet Estimate Normal
[2017-06-09 10:49] LABS: Alanine Aminotransferase 68 U/L (16-61); Albumin 3.7 G/DL (3.4-5.0); Alkaline Phosphatase 84 U/L (45-117); Aspartate Amino Transferase 88 U/L (0-37); Bilirubin,Total < 0.39 MG/DL (0.2-1.0); Blood Urea Nitrogen 20 MG/DL (7-18); Calcium 8.9 MG/DL (8.5-10.1); Glucose 81 MG/DL (74-106); Magnesium 2.2 MG/DL (1.8-2.4); Osmolality,Calculated 278.5 MOS/KG (273-304); Potassium 3.8 MMOL/L (3.5-5.1); Sodium 139 MMOL/L (136-145); Total Protein 8.4 G/DL (6.4-8.3)
--- NOTE | 2017-06-09 11:38 | Emergency Department Note ---
Era Wyman Rolonda, am scribing for, and in the presence of, Erasto Pleitez MD 08:50. Maik Wyman Phillip K, MD, personally performed the services described in this documentation, ascribed by Mora Girard in my presence, and it is both accurate and complete . Arrival - Arrival Chief Complaint: Abdominal / Flank Pain Stated Complaint: n/v and abd pain ED Nursing Triage Note: Patient to triage with c/o n/v, abd pain, dark urine, and throwing up blood. He states it started about two weeks ago. He was admitted for this but had to leave due to his mother having a stroke. He states he is just no better. Mode of Arrival: Ambulatory Limitations: No Limitations Source: Patient, Old Records Reviewed, RN Notes Reviewed Time Seen by Provider: 06/09/17 08:18 - History of Present Illness HPI Narrative: Pt is a 61 y/o male who presents to the ED with c/o abdominal pain with an onset of weeks. Pt has a PMHx of [place], CVA, and HTN. Pt has a Shx of everyday EtOH usage. Pt was last seen in ED on 06/06/2017 for abdominal pain and left on 06/09/2017 due to "his mother having a stroke". Pt states that he has been vomiting "dark coffee grind" and has had a "dark stool" for x2 weeks. Pt confirms associated sxs of nausea. No other complaint/pain in ED. Onset (ago): week(s) Consistency: constant Severity: moderate Severity scale (1-10): 5 Allergies/Adverse Reactions: Allergies Allergy/AdvReac Type Severity Reaction Status Date / Time ketorolac [From Toradol] Allergy Unknown/Unable Verified 06/09/17 08:03 to obtain Home Medications: Home Medications Medication Instructions Recorded Confirmed Type Aspirin EC Tab 81 mg PO DAILY 04/13/17 06/08/17 History Carvedilol [Coreg] 6.25 mg PO BID 04/13/17 06/08/17 History Escitalopram [Lexapro] 10 mg PO DAILY 04/13/17 06/08/17 History Losartan Potassium 1 tablet PO DAILY 04/13/17 06/08/17 History NIFEdipine XL TAB [Procardia Xl] 30 mg PO BEDTIME 04/13/17 06/08/17 History Review of System - Review of System 12 point system: reviewed and no additional remarkable complaints except as stated - Review of System Constitutional: Absent: chills Eyes: Absent: discharge Head/Ears/Nose/Throat: Absent: earache Respiratory: Absent: cough Cardiovascular: Absent: chest pain Gastrointestinal: Present: abdominal pain, nausea, vomiting ("coffee grind") Genitourinary male: Present: other ("dark stool") Musculoskeletal: Absent: arm pain, back pain Skin: Absent: rash Neurological: Absent: headache Psychiatric: Absent: anxiety Endocrine: Absent: cold intolerance Hematological/Lymphatic: Absent: easy bleeding Allergic/Immunologic: Absent: facial swelling Medical,Surgical,& Family Hx - Medical History Cardio: History of: Hypertension, [place] Psychological: History of: Psychiatric/Substance Abuse Tx (Alcohol) Neurology: History of: Cerebrovascular Accident Gastrointestinal: History of: Hepatitis (hep c) - Surgical History Abdominal Surgeries: Patient denies: Abdominal Surgery Orthopedic Surgeries: Surgical HX of;: Orthopedic Surgery (right arm and left foot) - Family History Family History: Reports;: Family Stroke - Social History Smoking Status: Current some day smoker Frequency of Alcohol Use: Occasionally Type of Drug Use: None Exam Vital Signs: Vital Signs Temperature 98.8 F 06/09/17 08:09 Pulse Rate 103 H 06/09/17 08:09 Respiratory Rate 18 06/09/17 08:09 Blood Pressure 124/72 06/09/17 08:09 O2 Sat by Pulse Oximetry 97 06/09/17 07:59 - General General appearance: alert, in no apparent distress - Head Head exam: Present: atraumatic, normocephalic - Eye Eye exam: Present: PERRL, EOMI - ENT ENT exam: Present: mucous membranes moist. Absent: mucous membranes dry - Neck Neck exam: Present: full ROM. Absent: tenderness - Chest Chest inspection: Present: symmetric chest wall rise. Absent: tenderness - Respiratory Respiratory exam: Present: normal lung sounds bilaterally. Absent: wheezes - Cardiovascular Cardiovascular exam: Present: regular rate, normal rhythm, normal heart sounds. Absent: bradycardia - Abdominal Exam Abdominal exam: Present: soft, tenderness (epigastric ), normal bowel sounds - Extremities Exam Extremities exam: Present: full ROM. Absent: normal inspection (sore on the anterior tibia surface of right leg) Course Course Narrative: Admit to the hospitalist. Results - Labs CBC & BMP: 08/25/17 09:58 06/09/17 09:58 Lab Results: I have reviewed the patients labs Labs: Laboratory Tests 06/09/17 09:58 WBC 5.0 D RBC 3.55 L Hgb 8.0 L Hct 26.9 L MCV 75.8 L MCH 23 L MCHC 29.7 L RDW 20.8 H Plt Count 335 D Butler % (Auto) 17.2 H Lymph # (Auto) 1.1 L Butler # (Auto) 0.9 H - Diagnostic Findings Procedure: Abdominal x-ray: report reviewed by me (Negative bowel gas pattern.) , Chest x-ray: report reviewed by me (Stable appearence of the chest.) Disposition Clinical Impression: Upper GI hemorrhage, Alcohol abuse, Abdominal pain, Possible alcoholic gastritis Case discussed with: patient Disposition: Still a Patient Condition: Guarded
--- NOTE | 2017-06-09 11:49 | Hospitalist History & Physical ---
<Clemencia Shin - Last Filed: 06/09/17 11:31> Assessment and Plan - Time spent with patient Time spent with patient: Greater than 30 minutes (1) Abdominal pain Status: Acute Assessment and plan: H&H 8.0 & 26.9. Admit for further evaluation abdominal pain and GI bleed. Start IV fluids. Consult GI. Repeat labs in a.m. Will discuss with Dr Rios for further evaluations. Current Visit: No (2) Alcohol abuse Status: Acute Assessment and plan: Chronic Alcohol use history. Serum Alcohol 42. Will need to take withdrawl precautions. Current Visit: No (3) Cocaine abuse Status: Chronic Assessment and plan: Patient denies recent use but does not remember the last time he used cocaine. Current Visit: No History of Present Illness Chief complaint: GI bleed History of present illness: Mr. Bravo is a 61 year old black male with PMHx [place], CVA, HTN, alcohol abuse, presented to the ED for c/o 2 weeks of nausea and vomiting with bright red blood and coffee ground emesis. He verbalized 4-5 days of stool being "jet black" in color and abdominal pain. He verbalized shortness of breath with exertion and dizziness this a.m. Denies any chest pain, fever, or chills. Patient has a long time use of alcohol. Cocaine use but denies recent use, and could not remember last time. Last admission was on 06/07/17 for GI bleed evaluation and was on the way to the GI lab for scheduled endoscopy 06/09/[address] Fleming but the patient left the Hospital AGAINST MEDICAL ADVICE prior to having the GI scope. IN ED: EKG sinus tachycardia; ABD XRAY: Negative bowel gas pattern. CXR: stable appearance of the chest. LABS: H&H 8.0 & 26.9; Electrolytes within normal range. BUN 20 and Creatinine 1.40; AST 88; ALT 68; Alkaline Phosphatase 84; Lipase 290.0; Serum Alcohol 42 PCP: none (states a doctor in [place] wrote his HTN medicine prescription with 10 refills) After discussion with Dr Pleitez in the ED and Dr Rios with Hospital Medicine ; it was agreed to admit patient for further evaluation and treatment. Home medications to be reviewed and reconciliation to follow. Home Medications Medication Instructions Recorded Confirmed Type Aspirin EC Tab 81 mg PO DAILY 04/13/17 06/08/17 History Carvedilol [Coreg] 6.25 mg PO BID 04/13/17 06/08/17 History Escitalopram [Lexapro] 10 mg PO DAILY 04/13/17 06/08/17 History Losartan Potassium 1 tablet PO DAILY 04/13/17 06/08/17 History NIFEdipine XL TAB [Procardia Xl] 30 mg PO BEDTIME 04/13/17 06/08/17 History Allergies Allergy/AdvReac Type Severity Reaction Status Date / Time ketorolac [From Toradol] Allergy Unknown/Unable Verified 06/09/17 08:03 to obtain Medical,Surgical,& Family Hx - Medical History Cardio: History of: Hypertension, [place] Psychological: History of: Psychiatric/Substance Abuse Tx (Alcohol; cocaine; frequent BC powder) Neurology: History of: Cerebrovascular Accident Gastrointestinal: History of: Hepatitis (hep c) - Surgical History Abdominal Surgeries: Patient denies: Abdominal Surgery Orthopedic Surgeries: Surgical HX of;: Orthopedic Surgery (right arm and left foot) - Family History Family History: Reports;: Family Stroke - Social History Smoking Status: Current some day smoker (smokes 1-2 cigars per day) Frequency of Alcohol Use: Occasionally Type of Drug Use: None, Cocaine (unknown how often) Marital Status: Single Lives With:: Alone Functional capacity: independent ambulation 12 point system: reviewed and no additional remarkable complaints except as stated Exam - Constitutional Vitals: Period Temp Pulse Resp BP Sys/Torres Pulse Ox Last 24 Hr 98.8 F-98.8 F 103-103 18-18 124-124/72-72 97 General appearance: normal weight, no acute distress - Head Head exam: Present: normal inspection - Eye Eye exam: Present: EOMI Pupils: Present: JEFFREY - Neck Neck exam: Present: normal inspection. Absent: thyromegaly - Respiratory Respiratory exam: Present: clear to auscultation bilaterally. Absent: rhonchi, stridor, wheezes - Cardiovascular Cardiovascular exam: Present: regular rate and rhythm - GI/Abdominal GI/Abdominal exam: Present: normal bowel sounds, soft - Extremities Exam Extremities exam: Present: full ROM. Absent: edema - Neurological Exam Neurological exam: Present: alert, oriented X3 - Psychiatric Psychiatric exam: Absent: agitated, anxious - Skin Skin exam: Present: normal color, warm, dry Results - Labs CBC & BMP: 06/09/17 09:58 06/09/17 09:58 Lab Results: I have reviewed the past 24 hour labs - Diagnostic Findings Procedure: Abdominal x-ray: report reviewed by me (negative bowel gas pattern), Chest x-ray: report reviewed by me (stable appearance of the chest) <John Rios - Last Filed: 06/09/17 13:41> History of Present Illness History of present illness: Mr. Bravo is a 61 year old male Exam - Constitutional Vitals: Period Temp Pulse Resp BP Sys/Torres Pulse Ox Last 24 Hr 98 F-98.8 F 76-103 18-20 124-157/72-88 97-97 Results - Labs CBC & BMP: 06/09/17 12:24 06/09/17 09:58
[2017-06-09] MEDS ORDERED: ONDANSETRON 4 MG/2 ML VIAL IV PRN (12:01)
[2017-06-09] MEDS ORDERED: LORazepam 2 MG/1 ML VIAL IV PRN (12:13)
[2017-06-09] MEDS: SODIUM CHLORIDE 0.9% 1,000 ML IV SCH ×2 (12:14→23:06)
--- NOTE | 2017-06-09 12:32 | Gastrointestinal Consult Note ---
<Elizabeth Patel - Last Filed: 06/09/17 12:30> Assessment and Plan (1) GI bleed Status: Acute Assessment and plan: 06/09-2 week history of abdominal pain with hematemesis, coffee-ground emesis, and reports of melena. No prior endoscopy in the past. Prior hospitalization earlier this week, leaving AMA. ER visit earlier this week leaving AMA. H&H on admission at 06/10. Long-term history of alcohol use. Continue to monitor serial H&H. Clear liquid diet at present time. Check stools for occult blood. Plan an addendum to followed by Dr. Fleming. Current Visit: Yes History of Present Illness Chief complaint: GI bleed History of present illness: Mr. Bravo is a 61 year old male who was admitted to the hospital with reports of melena and hematemesis. Patient has a prior history of ID, CVA, hypertension , and long-term alcohol use. Patient presented to the emergency room today with complaints of abdominal pain, hematemesis, coffee-ground emesis, melena. Patient was seen in our facility earlier this week and was admitted for the same complaints however just prior to his schedule EGD, patient was discharged AMA. Patient then returned to the emergency room 2 days later with the same complaints however due to not being seen in a reported timely manner according to the patient, he again left AMA and states he was going [facility]. Patient states he did go down to the emergency room but "I did not like their services so I decided to come back here". Patient states that he has had episodes of dark tarry stools as well as some daily episodes of nausea and vomiting with at times coffee-ground looking emesis and other times bright red blood. He states that he is having some generalized abdominal pain that is constant in nature and states that it worsens every time he eats. Patient is requesting food at this time and states that he is hungry however patient informed that if eating worsens his pain, we will continue with just a clear liquid diet at this time. Patient states that he has had more to eat and that is requesting some medication to help with his pain so he can eat. He denies taking any NSAIDs. He denies taking any anticoagulants. He does have a history of alcohol use as well as illicit drug use in the past. He also does report that he takes several BC powders daily and has done this for several years. On his admission earlier this week, his CT of abdomen with IV contrast showed fatty liver, mildly dilated and wall thickening involving loops of small intestines proximally. He also had an initial elevated lactic acid level which normalized. He is noted today to have mildly elevated transaminases with an AST of 88, ALT of 68. His lipase is normal at 290. Noted to have a serum alcohol of 42. Home Medications Medication Instructions Recorded Confirmed Type Aspirin EC Tab 81 mg PO DAILY 04/13/17 06/08/17 History Carvedilol [Coreg] 6.25 mg PO BID 04/13/17 06/08/17 History Escitalopram [Lexapro] 10 mg PO DAILY 04/13/17 06/08/17 History Losartan Potassium 1 tablet PO DAILY 04/13/17 06/08/17 History NIFEdipine XL TAB [Procardia Xl] 30 mg PO BEDTIME 04/13/17 06/08/17 History Allergies Allergy/AdvReac Type Severity Reaction Status Date / Time ketorolac [From Toradol] Allergy Unknown/Unable Verified 06/09/17 08:03 to obtain Medical,Surgical,& Family Hx - Medical History Cardio: History of: Hypertension, ID Psychological: History of: Psychiatric/Substance Abuse Tx (Alcohol; cocaine; frequent BC powder) Neurology: History of: Cerebrovascular Accident Gastrointestinal: History of: Hepatitis (hep c) - Surgical History Abdominal Surgeries: Patient denies: Abdominal Surgery Orthopedic Surgeries: Surgical HX of;: Orthopedic Surgery (right arm and left foot) - Family History Family History: Reports;: Family Stroke - Social History Smoking Status: Current some day smoker Frequency of Alcohol Use: Occasionally Type of Drug Use: None, Cocaine 12 point system: reviewed and no additional remarkable complaints except as stated - Constitutional Constitutional: Present: as per HPI - EENT Eyes: Present: as per HPI Ears: Present: as per HPI Nose, mouth and throat: Present: as per HPI - Cardiovascular Cardiovascular: Present: as per HPI - Respiratory Respiratory: Present: as per HPI - Gastrointestinal Gastrointestinal: Present: as per HPI, abdominal pain, hematemesis, melena, nausea, vomiting - Genitourinary Genitourinary: Present: as per HPI - Musculoskeletal Musculoskeletal: Present: as per HPI - Neurological Neurological: Present: as per HPI - Psychiatric Psychiatric: Present: as per HPI - Endocrine Endocrine: Present: as per HPI - Hematologic/Lymphatic Hematologic/Lymphatic: Present: as per HPI Exam - Constitutional Vitals: Period Temp Pulse Resp BP Sys/Torres Pulse Ox Last 24 Hr 98.8 F-98.8 F 76-103 18-18 124-139/72-88 97-97 General appearance: normal weight, no acute distress - Head Head exam: Present: normal inspection, normocephalic - Eye Eye exam: Present: other (Lids and conjunctive are unremarkable). Absent: scleral icterus - ENT ENT exam: Present: normal exam, normal oropharynx - Respiratory Respiratory exam: Present: clear to auscultation bilaterally. Absent: rales, rhonchi, wheezes - Cardiovascular Cardiovascular exam: Present: regular rate and rhythm. Absent: diastolic murmur , JVD, systolic murmur - GI/Abdominal GI/Abdominal exam: Present: normal bowel sounds, tenderness, soft. Absent: ascites, distended, mass, organomegaly - Extremities Exam Extremities exam: Present: normal inspection, full ROM - Back Exam Back exam: Present: normal inspection - Neurological Exam Neurological exam: Present: alert, oriented X3 - Psychiatric Psychiatric exam: Present: normal affect, normal mood - Skin Skin exam: Present: normal color, warm, dry Results - Labs CBC & BMP: 06/09/17 09:58 06/09/17 09:58 Lab Results: I have reviewed the past 24 hour labs - Diagnostic Findings Procedure: Abdominal x-ray: report reviewed by md <Alexey Fleming - Last Filed: 06/09/17 13:29> History of Present Illness History of present illness: Mr. Bravo is a 61 year old male Exam - Constitutional Vitals: Period Temp Pulse Resp BP Sys/Torres Pulse Ox Last 24 Hr 98 F-98.8 F 76-103 18-20 124-157/72-88 97-97 Results - Labs CBC & BMP: 06/09/17 12:24 06/09/17 09:58
[2017-06-09 12:47] LABS: Hematocrit 27.7 VOL% (42.0-52.0)
[2017-06-09] MEDS: SUCRALFATE 1 GM/10 ML UDCUP PO SCH ×2 (15:55→21:49)
[2017-06-09 20:59] LABS: Hematocrit 26.2 VOL% (42.0-52.0); Hemoglobin 7.5 GM/DL (14.0-18.0)
[2017-06-09] MEDS: PANTOPRAZOLE 40 MG TABLET PO SCH (21:49)
[2017-06-10 06:44] LABS: Basophils % 0.5 % (0.0-0.8); Eosinophils # 0.2 10*3/uL (0.0-0.87); Eosinophils % 4.5 % (0.00-10.9); Hematocrit 25.7 VOL% (42.0-52.0); Hemoglobin 7.4 GM/DL (14.0-18.0); Immature Granulocytes % 0.2 %; Immature Granulocytes Absolute 0.01 #; Lymphocytes # 1.4 10*3/uL (1.4-4.0); Lymphocytes % 34.7 % (21.2-54.2); Mean Corpuscular HGB Conc 28.8 GM/DL (32-36); Mean Corpuscular Hemoglobin 22 PG (27-34); Mean Corpuscular Volume 76.7 FL (87-102); Mean Platelet Volume 9.8 FL (9.6-12.0); Monocytes # 0.9 10*3/uL (0.11-0.8); Monocytes % 22.3 % (1.7-12.7); Neutrophils # 1.5 10*3/uL (1.4-7.4); Neutrophils % 37.8 % (38.7-73.9); Platelet Count 239 T/CUMM (130-400); Red Blood Count 3.35 MC/CUMM (3.8-5.5); Red Cell Distribution Width 20.8 % (9.3-17.3)
[2017-06-10 06:46] LABS: Hematocrit 25.6 VOL% (42.0-52.0); Hemoglobin 7.4 GM/DL (14.0-18.0)
[2017-06-10] MEDS: SODIUM CHLORIDE 0.9% 1,000 ML IV SCH ×3 (06:49→23:13)
[2017-06-10] MEDS: SUCRALFATE 1 GM/10 ML UDCUP PO SCH ×5 (06:52→20:02)
[2017-06-10 07:14] LABS: Eosinophils 1 % (0-10); Lymphocytes 34 % (20-55); Segmented Neutrophils 52 % (50-85); Total Cells Counted 100
[2017-06-10 07:15] LABS: Hypochromasia 2+; Platelet Estimate Adequate; Target Cells Slight
[2017-06-10 07:26] LABS: Folate 18.9 NG/ML (5.4-24.0)
[2017-06-10 07:28] LABS: Albumin 3.1 G/DL (3.4-5.0); Bilirubin,Total 0.4 MG/DL (0.2-1.0); Calcium 8.8 MG/DL (8.5-10.1); Osmolality,Calculated 276.4 MOS/KG (273-304); Potassium 4.1 MMOL/L (3.5-5.1); Total Protein 7.2 G/DL (6.4-8.3)
[2017-06-10] MEDS: PANTOPRAZOLE 40 MG TABLET PO SCH ×3 (08:31→20:03)
[2017-06-10] MEDS: MULTIVITAMIN (CENTRUM) TABLET PO SCH (08:31)
[2017-06-10] MEDS: FOLIC ACID 1 MG TABLET PO SCH (08:32)
--- NOTE | 2017-06-10 10:42 | Hospitalist Progress Note ---
Assessment and Plan (1) Hematemesis Status: Acute Assessment and plan: Gastroenterology has been consulted. He has experienced no recurrent episodes of hematemesis in the hospital. Current Visit: Yes (2) Polysubstance abuse Status: Chronic Assessment and plan: His previous history of alcohol and cocaine abuse. Current Visit: No (3) Abdominal pain Status: Acute Assessment and plan: He is comfortable now with no abdominal pain. Current Visit: No Qualifiers: Abdominal location: unspecified location Qualified Code(s): R10.9 - Unspecified abdominal pain (4) Anemia Status: Acute Assessment and plan: His hematocrit and hemoglobin were 25.6 and 7.4 respectively. Current Visit: Yes Qualifiers: Anemia type: unspecified type Qualified Code(s): D64.9 - Anemia, unspecified Hospitalist: Subjective Interval history: Patient was readmitted to the hospital, after having left the hospital previously AGAINST MEDICAL ADVICE, with recurrent abdominal pain and hematemesis. He has a previously known history of alcohol abuse. He is comfortable at the present time with no abdominal pain and has not experienced recurrent episodes of nausea, vomiting, or hematemesis. Gastroenterology has been consulted. Exam - Constitutional Vitals: Period Temp Pulse Resp BP Sys/Torres Pulse Ox Last 24 Hr 97.0 F-98.4 F 60-88 16-20 127-158/72-91 94-98 General appearance: no acute distress - Head Head exam: Present: normal inspection - Neck Neck exam: Present: normal inspection - Respiratory Respiratory exam: Present: clear to auscultation bilaterally - Cardiovascular Cardiovascular exam: Present: regular rate and rhythm - GI/Abdominal GI/Abdominal exam: Present: normal bowel sounds, soft, other (Nontender with no palpable masses or hepatosplenomegaly.) - Extremities Exam Extremities exam: Present: normal inspection - Neurological Exam Neurological exam: Present: alert - Psychiatric Psychiatric exam: Present: normal affect - Skin Skin exam: Present: normal color, warm, intact Results - Labs CBC & BMP: 06/10/17 06:30 06/10/17 06:30
[2017-06-10] MEDS: LOSARTAN 25 MG TABLET PO SCH (20:11)
[2017-06-11] MEDS: SUCRALFATE 1 GM/10 ML UDCUP PO SCH ×4 (06:38→20:57)
[2017-06-11] MEDS: SODIUM CHLORIDE 0.9% 1,000 ML IV SCH ×2 (06:39→14:49)
[2017-06-11] MEDS: MULTIVITAMIN (CENTRUM) TABLET PO SCH (08:50)
[2017-06-11] MEDS: LOSARTAN 25 MG TABLET PO SCH ×2 (08:50→20:57)
[2017-06-11] MEDS: FOLIC ACID 1 MG TABLET PO SCH (08:50)
[2017-06-11] MEDS: PANTOPRAZOLE 40 MG TABLET PO SCH ×3 (08:50→20:57)
--- NOTE | 2017-06-11 13:13 | Hospitalist Progress Note ---
Assessment and Plan (1) Essential hypertension Status: Chronic Current Visit: No (2) Abdominal pain Status: Acute Current Visit: No Qualifiers: Abdominal location: unspecified location Qualified Code(s): R10.9 - Unspecified abdominal pain (3) Anemia, chronic disease Status: Chronic Current Visit: No (4) Anemia Status: Acute Assessment and plan: Plan for EGD in a.m. CBC in a.m. Current Visit: Yes Qualifiers: Anemia type: unspecified type Qualified Code(s): D64.9 - Anemia, unspecified Hospitalist: Subjective Interval history: The patient is resting. Hematocrit is noted to be 25 today. The patient is scheduled for an EGD on Monday. Hemodynamics have been stable. Exam - Constitutional Vitals: Period Temp Pulse Resp BP Sys/Torres Pulse Ox Last 24 Hr 97.1 F-98.4 F 60-73 18-20 115-171/60-98 97-100 General appearance: normal weight - Head Head exam: Present: normal inspection - Neck Neck exam: Present: normal inspection - Respiratory Respiratory exam: Present: clear to auscultation bilaterally - Cardiovascular Cardiovascular exam: Present: regular rate and rhythm - GI/Abdominal GI/Abdominal exam: Present: normal bowel sounds - Back Exam Back exam: Present: normal inspection - Neurological Exam Neurological exam: Present: alert, oriented X3, CN II-XII intact - Psychiatric Psychiatric exam: Present: normal affect - Skin Skin exam: Present: normal color, dry Results - Labs CBC & BMP: 06/10/17 06:30 06/10/17 06:30
--- NOTE | 2017-06-11 17:29 | Gastrointestinal Consult Note ---
Assessment and Plan (1) GI bleed Status: Acute Current Visit: Yes (2) Other specified counseling Status: Acute Current Visit: Yes History of Present Illness History of present illness: Mr. Bravo is a 61 year old male Home Medications Medication Instructions Recorded Confirmed Type Aspirin EC Tab 81 mg PO DAILY 04/13/17 06/09/17 History Losartan Potassium 1 tablet PO BID 04/13/17 06/09/17 History Allergies Allergy/AdvReac Type Severity Reaction Status Date / Time ketorolac [From Toradol] Allergy Unknown/Unable Verified 06/09/17 08:03 to obtain Medical,Surgical,& Family Hx - Medical History Cardio: History of: Hypertension, [place] Psychological: History of: Psychiatric/Substance Abuse Tx (Alcohol; cocaine; frequent BC powder) Neurology: History of: Cerebrovascular Accident Gastrointestinal: History of: Hepatitis (hep c) - Surgical History Abdominal Surgeries: Patient denies: Abdominal Surgery Orthopedic Surgeries: Surgical HX of;: Orthopedic Surgery (right arm and left foot) - Family History Family History: Reports;: Family Stroke - Social History Smoking Status: Current some day smoker Frequency of Alcohol Use: Occasionally Type of Drug Use: None, Cocaine Exam - Constitutional Vitals: Period Temp Pulse Resp BP Sys/Torres Pulse Ox Last 24 Hr 97.1 F-98.4 F 62-73 18-20 115-190/60-98 96-100 Results - Labs CBC & BMP: 06/10/17 06:30 06/10/17 06:30 Note Addendum: PLEASE NOTE -- automatic citation of patient information is unavoidable in this electronic note. I have made a reasonable effort to review the information cited , but it is not a part of my evaluation, impression, or recommendation unless specifically discussed in the dictated text that follows. As well, voice recognition software was used in the creation of this clinical note. Reasonable effort was made to identify and correct gross errors. Despite proofreading, errors in inspector finishing may be present, including nonsense verbiage at times. If you encounter such an error, please contact me at for discussion and correction. -- Melanie Chief complaint: coffee ground emesis Subjective: the patient is a 61-year-old male seen for follow-up of suspected gastrointestinal bleeding. Blood counts have remained stable over the weekend. The patient has not require blood transfusion. No bowel movements have been recorded overnight. The patient is tolerating oral intake. Medications: folic acid, [place], Centrum, Ativan, Cozaar, morphine, Zofran, Protonix, normal saline, Carafate Review of Symptoms: 12 point review of symptoms was negative except as noted above Physical examination: Vital Signs: Current vital signs reviewed. General Appearance: well-appearing. Not acutely ill. Head: Normocephalic. Eyes: no scleral icterus. No scleral injection. No conjunctival pallor. Oral Cavity: Odor of breath was normal. No drooling was observed. Lips showed no abnormalities. Lungs: Respiration rhythm and depth was normal. Cardiovascular: Heart rate and rhythm were normal. Abdomen: abdomen was not distended. Abdominal auscultation revealed no abnormalities. Ascites was not discovered. Abdominal palpation revealed no tenderness and no hepatosplenomegaly. Musculoskeletal System: musculoskeletal system was grossly normal. Neurological: level of consciousness was normal. Speech was normal. No coordination/cerebellum abnormalities were noted. Skin: Gen. appearance was normal. Color and pigmentation were normal. No skin lesions were appreciated. Laboratory: hemoglobin 7.4, hematocrit 25.6, MCV 77, platelets 239, ALT 54, AST 53, bilirubin 0.4, alkaline phosphatase 71 Radiology: reviewed with no pertinent changes noted. Impressions: #1. Gastrointestinal bleeding, indeterminate -- the patient has been stable over the weekend. I recommend continued proton pump inhibitor. I recommend continued monitoring of blood counts with transfusion as indicated. I recommend continued volume management otherwise. We will plan upper endoscopy tomorrow and follow up with further recommendations pending the result of that exam. #2. Other specified counseling -- Patient seen for greater than 30 minutes. Greater than 50% of this time was spent counseling regarding differential diagnosis, likely diagnosis,, diagnostic and therapeutic options, risks, benefits, and alternatives to procedures and medications, informed consent, and plan of care generally. Patient has expressed understanding and wishes to proceed. Recommendations: -- continue proton pump inhibitor -- continue volume management -- continue monitoring blood counts with transfusion as indicated -- upper endoscopy tomorrow -- we will continue to follow with you. Dr. Fleming will resume G.I. care for this patient tomorrow.
[2017-06-12] MEDS: MORPHINE 2 MG/1 ML SYRINGE IV PRN ×3 (02:14→15:19)
[2017-06-12] MEDS: SODIUM CHLORIDE 0.9% 1,000 ML IV SCH ×3 (02:15→19:03)
[2017-06-12] MEDS: hydrALAZINE 20 MG/1 ML VIAL IV PRN (05:56)
[2017-06-12 07:09] LABS: Basophils % 0.6 % (0.0-0.8); Eosinophils # 0.2 10*3/uL (0.0-0.87); Eosinophils % 3.7 % (0.00-10.9); Hematocrit 27.3 VOL% (42.0-52.0); Immature Granulocytes % 0.2 %; Immature Granulocytes Absolute 0.01 #; Lymphocytes # 1.4 10*3/uL (1.4-4.0); Lymphocytes % 29.2 % (21.2-54.2); Mean Corpuscular HGB Conc 29.3 GM/DL (32-36); Mean Corpuscular Hemoglobin 22 PG (27-34); Mean Corpuscular Volume 76.5 FL (87-102); Mean Platelet Volume 10.5 FL (9.6-12.0); Monocytes # 0.8 10*3/uL (0.11-0.8); Monocytes % 15.5 % (1.7-12.7); Neutrophils # 2.5 10*3/uL (1.4-7.4); Neutrophils % 50.8 % (38.7-73.9); Platelet Count 253 T/CUMM (130-400); Red Blood Count 3.57 MC/CUMM (3.8-5.5); White Blood Count 4.9 T/CUMM (4-12)
[2017-06-12] MEDS ORDERED: PROPOFOL 200 MG/20 ML VIAL IV ONE (12:50)
[2017-06-12] MEDS ORDERED: LIDOCAINE 2% 5 ML VIAL ONE (12:50)
--- NOTE | 2017-06-12 12:53 | History and Physical Update ---
History and Physical Update - History and Physical H&P was reviewed, the patient examined and there: are no changes in the patients condition since last H&P was completed. - Physical Exam Mental Status: alert and oriented Heart: regular rate and rhythm Lung: clear to auscultation Abdomen: within normal limits Vitals: within normal limits
--- NOTE | 2017-06-12 13:00 | Operative Note ---
Date of procedure: 06/12/17 Pre-op diagnosis: Recent hematemesis, iron deficiency anemia Procedure: Procedure: Esophagogastroduodenoscopy Brief clinical abstract: Patient is a 61-year-old male admitted with recent vomiting and coffee-ground emesis. He has been noted to have iron deficiency. Indication for procedure: Recent upper GI bleeding, iron deficiency Endoscopic findings:[After informed consent was obtained, the patient was placed in the left lateral decubitus position. The gastroscope was inserted in the upper esophagus under direct vision with no resistance encountered. Esophageal mucosa appeared normal down to the squamocolumnar junction. There was a short longitudinal erosion less than 5 mm in length at that level consistent with reflux etiology. Distal to this was a moderate-sized 3 cm long hiatal hernia. The endoscope was advanced in the stomach which was carefully examined including retroflexed view of the cardia and fundus with no abnormality seen. The pyloric channel, duodenal bulb, second and third portion of the duodenum appeared normal. The endoscope was removed and patient appeared to tolerate the procedure well. Impression: Moderate sized hiatal hernia-otherwise normal EGD Recommendations: Continue daily PPI. Would recommend colonoscopy and plan to do tomorrow if still inpatient. If discharged, could do as outpatient. Anesthesia: MAC Surgeon / Physician: Alexey Fleming Estimated blood loss: none Specimens: none sent Condition: stable Disposition: post procedure unit Results - Labs CBC & BMP: 06/12/17 07:01 06/10/17 06:30 Discharge Plan - Discharge Medications No Action Aspirin EC Tab 81 mg PO DAILY Losartan Potassium 1 tablet PO BID - Follow Up or Referral - Forms/Instructions Instructions: Upper Gastrointestinal Endoscopy (DC)
--- NOTE | 2017-06-12 13:02 | Anesthesia Post-Op ---
Anesthesia Post OP - Post Ansesthetic Evaluation Patient seen in post op: Yes Resp: within normal limits CV: within normal limits Mental: within normal limits Temp: within normal limits [id number]: within normal limits Nausea and Vomiting: within normal limits Pain: within normal limits
[2017-06-12] MEDS: SUCRALFATE 1 GM/10 ML UDCUP PO SCH ×4 (13:43→20:07)
[2017-06-12] MEDS: PANTOPRAZOLE 40 MG TABLET PO SCH ×3 (14:22→20:08)
[2017-06-12] MEDS: MULTIVITAMIN (CENTRUM) TABLET PO SCH (14:23)
[2017-06-12] MEDS: LOSARTAN 25 MG TABLET PO SCH (14:23)
[2017-06-12] MEDS: FOLIC ACID 1 MG TABLET PO SCH (14:23)
--- NOTE | 2017-06-12 15:17 | Hospitalist Progress Note ---
Assessment and Plan (1) Essential hypertension Status: Chronic Assessment and plan: uncontrolled with a history of cocaine use in the recent past add Norvasc, increase Cozaar to 50mg bid, follow response continue with prn hydralazine. UDS Cardiac enzymes EKG TSH Echo urinalysis Current Visit: No (2) Abdominal pain Status: Acute Assessment and plan: Improved Current Visit: No Qualifiers: Abdominal location: unspecified location Qualified Code(s): R10.9 - Unspecified abdominal pain (3) Cocaine abuse Status: Chronic Assessment and plan: Patient denies recent use. Will get aUDS Current Visit: No (4) Anemia Status: Acute Assessment and plan: EGD showed Moderate sized hiatal hernia-otherwise normal EGD Get Fe studies Current Visit: Yes Qualifiers: Anemia type: unspecified type Qualified Code(s): D64.9 - Anemia, unspecified (5) Alcohol abuse Status: Acute Assessment and plan: continue multivitamins Current Visit: No Hospitalist: Subjective Interval history: Patient seen, blood pressure is uncontrolled. He is scheduled for an EGD this am. Exam - Constitutional Vitals: Period Temp Pulse Resp BP Sys/Torres Pulse Ox Last 24 Hr 97.4 F-98.2 F 50-83 16-20 135-198/67-118 94-100 General appearance: no acute distress - Head Head exam: Present: normal inspection - Eye Eye exam: Present: EOMI - Respiratory Respiratory exam: Present: clear to auscultation bilaterally - Cardiovascular Cardiovascular exam: Present: regular rate and rhythm - GI/Abdominal GI/Abdominal exam: Present: normal bowel sounds - Extremities Exam Extremities exam: Present: normal inspection - Neurological Exam Neurological exam: Present: alert, oriented X3 Results - Labs CBC & BMP: 06/12/17 07:01 06/10/17 06:30 Lab Results: I have reviewed the past 24 hour labs Specialty Discharge - Follow Up or Referrals
[2017-06-12 16:59] LABS: % Iron Saturation 3.3 % (18-50); Ferritin 7.7 ng/ml (26-388); Free T4 (Free Thyroxine) 0.98 NG/DL (0.76-1.46); Troponin I Only < 0.015 NG/ML (0.00-0.045)
[2017-06-12] MEDS: amLODIPine 5 MG TABLET PO SCH (17:06)
[2017-06-12] MEDS ORDERED: POLYETHYLENE GLYCOL POWDER 255 GM BOTTLE PO ONE (18:00)
[2017-06-12 18:17] LABS: Apearance,Urine CLEAR (Clear); Bilirubin,Urine Negative (Negative); Blood, Urine Negative (Negative); Glucose,Urine (UA) Negative (Negative); Ketones,Urine Negative (Negative); Mucus,Urine Occasional /LPF (Occasional); Nitrite,Urine Negative (Negative); Protein,Urine Negative; RBC,Urine <1 /HPF (0-4); Squamous Epithelial Cell,Urine Occasional /HPF (0-10); Urine Color Yellow (Yellow); Urine Specific Gravity 1.015 (1.001-1.035); WBC,Urine <1 /HPF (0-6)
[2017-06-12] MEDS: LOSARTAN 50 MG TABLET PO SCH (20:07)
[2017-06-12 23:58] LABS: Barbiturates Screen,Urine Negative (Negative); Benzodiazepines Screen,Urine Negative (Negative); Cannabinoid Screen,Urine Negative (Negative); Opiate Screen,Urine Positive (Negative); Phencyclidine Screen,Urine Negative (Negative)
[2017-06-13] MEDS: SODIUM CHLORIDE 0.9% 1,000 ML IV SCH ×3 (03:04→17:25)
[2017-06-13] MEDS ORDERED: MAGNESIUM CITRATE 300 ML BOTTLE PO ONE (06:00)
[2017-06-13] MEDS: hydrALAZINE 20 MG/1 ML VIAL IV PRN ×2 (07:38→08:36)
--- NOTE | 2017-06-13 07:45 | EKG Report ---
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
[2017-06-13] MEDS: MULTIVITAMIN (CENTRUM) TABLET PO SCH (10:09)
[2017-06-13] MEDS: PANTOPRAZOLE 40 MG TABLET PO SCH ×3 (10:09→20:29)
[2017-06-13] MEDS: LOSARTAN 50 MG TABLET PO SCH ×2 (10:09→20:29)
[2017-06-13] MEDS: amLODIPine 5 MG TABLET PO SCH (10:09)
[2017-06-13] MEDS: FOLIC ACID 1 MG TABLET PO SCH (10:09)
[2017-06-13] MEDS: SUCRALFATE 1 GM/10 ML UDCUP PO SCH ×4 (10:09→20:33)
--- NOTE | 2017-06-13 11:27 | Hospitalist Progress Note ---
Hospitalist: Subjective Interval history: Patient has no complaints. He is scheduled for colonoscopy today. Exam - Constitutional Vitals: Period Temp Pulse Resp BP Sys/Torres Pulse Ox Last 24 Hr 97.2 F-97.8 F 63-99 16-20 135-191/67-118 94-100 General appearance: normal weight, no acute distress - Head Head exam: Present: normal inspection - Eye Eye exam: Present: EOMI Pupils: Present: JEFFREY - Respiratory Respiratory exam: Present: clear to auscultation bilaterally. Absent: rales, rhonchi, wheezes - Cardiovascular Cardiovascular exam: Present: regular rate and rhythm. Absent: diastolic murmur , systolic murmur - GI/Abdominal GI/Abdominal exam: Present: normal bowel sounds. Absent: tenderness, soft - Neurological Exam Neurological exam: Present: alert Results - Labs CBC & BMP: 06/12/17 07:01 06/10/17 06:30 - Impressions 1. HTN: uncontrolled; stop IVFs; increase norvasc; monitor 2. GIB: EGD was unremarkable; noted plan for colonoscopy today; on PPI; appreciate help by GI 3. Anemia: stable; transfuse if Hb<7 or 8 if symptomatic 4. Hypothyroidism: on synthroid 5. h/o cocaine abuse; current UDS positive for opiates only today Plan: as noted above Specialty Discharge - Follow Up or Referrals
[2017-06-13] MEDS ORDERED: PROPOFOL 200 MG/20 ML VIAL IV ONE (12:58)
[2017-06-13] MEDS ORDERED: LIDOCAINE 100 MG/5 ML SYRINGE ONE (12:58)
--- NOTE | 2017-06-13 13:22 | Operative Note ---
Date of procedure: 06/13/17 Pre-op diagnosis: Blood in stool Procedure: Procedure note: Colonoscopy Physician: Dr. Srinivas Fleming Brief clinical abstract: 61-year-old male has had recent documented occult blood in stool. He has never had colonoscopy in the past. Endoscopic findings: After informed consent was obtained, the patient was placed in the left lateral decubitus position. Digital rectal exam was performed with no palpable abnormalities felt. Pediatric videocolonoscope was inserted into the rectum and advanced to the cecum without difficulty. Retroflex view within the cecum was performed back to the level of the hepatic flexure. The endoscope was advanced back to the cecum and on withdrawal colonic mucosa was carefully examined. Bowel prep was of fairly good quality with some particulate stool matter scattered in the colon most which we were able to clear with washing with water and suctioning. Vascular pattern throughout the colon appeared normal. No polyps or diverticuli were seen. The endoscope was withdrawn in the rectum with retroflex view showing internal hemorrhoids, one of which was fairly large in size. The endoscope was removed and he appeared to tolerate the procedure well. Impression: Internal hemorrhoids-otherwise normal colonoscopy Plan: Advance diet. Could discharge if tolerating. Anesthesia: MAC Surgeon / Physician: Alexey Fleming Estimated blood loss: none Specimens: none sent Condition: stable Disposition: post procedure unit Results - Labs CBC & BMP: 06/12/17 07:01 06/10/17 06:30 Discharge Plan - Discharge Medications No Action Aspirin EC Tab 81 mg PO DAILY Losartan Potassium 1 tablet PO BID - Follow Up or Referral - Forms/Instructions Instructions: Upper Gastrointestinal Endoscopy (DC)
--- NOTE | 2017-06-13 13:30 | Anesthesia Post-Op ---
Anesthesia Post OP - Post Ansesthetic Evaluation Patient seen in post op: Yes Resp: within normal limits CV: within normal limits Mental: within normal limits Temp: within normal limits [id number]-Bisfrnjfw: within normal limits Nausea and Vomiting: within normal limits Pain: within normal limits
[2017-06-14 07:32] LABS: Basophils % 0.4 % (0.0-0.8); Eosinophils # 0.1 10*3/uL (0.0-0.87); Eosinophils % 3.1 % (0.00-10.9); Hematocrit 26.2 VOL% (42.0-52.0); Hemoglobin 7.7 GM/DL (14.0-18.0); Immature Granulocytes % 0.2 %; Immature Granulocytes Absolute 0.01 #; Lymphocytes # 1.6 10*3/uL (1.4-4.0); Lymphocytes % 34.9 % (21.2-54.2); Mean Corpuscular HGB Conc 29.4 GM/DL (32-36); Mean Corpuscular Hemoglobin 22 PG (27-34); Mean Corpuscular Volume 76.4 FL (87-102); Mean Platelet Volume 11.2 FL (9.6-12.0); Monocytes % 21.8 % (1.7-12.7); Neutrophils # 1.8 10*3/uL (1.4-7.4); Neutrophils % 39.6 % (38.7-73.9); Platelet Count 229 T/CUMM (130-400); Red Blood Count 3.43 MC/CUMM (3.8-5.5); Red Cell Distribution Width 20.9 % (9.3-17.3); White Blood Count 4.6 T/CUMM (4-12)
[2017-06-14 08:05] LABS: Band Neutrophils 1 % (0-10); Eosinophils 3 % (0-10); Hypochromasia 2+; Lymphocytes 24 % (20-55); Microcytosis 1+; Platelet Estimate Normal; Segmented Neutrophils 47 % (50-85); Total Cells Counted 100
[2017-06-14 08:07] LABS: Calcium 8.8 MG/DL (8.5-10.1); Magnesium 2.2 MG/DL (1.8-2.4); Osmolality,Calculated 278.5 MOS/KG (273-304); Potassium 3.8 MMOL/L (3.5-5.1)
[2017-06-14] MEDS: SODIUM CHLORIDE 0.9% 1,000 ML IV SCH ×3 (08:40→21:15)
[2017-06-14] MEDS: FOLIC ACID 1 MG TABLET PO SCH (08:42)
[2017-06-14] MEDS: amLODIPine 5 MG TABLET PO SCH (08:42)
[2017-06-14] MEDS: PANTOPRAZOLE 40 MG TABLET PO SCH ×3 (08:42→21:13)
[2017-06-14] MEDS: LOSARTAN 50 MG TABLET PO SCH ×2 (08:42→21:12)
[2017-06-14] MEDS: SUCRALFATE 1 GM/10 ML UDCUP PO SCH ×4 (08:42→21:12)
[2017-06-14] MEDS: MULTIVITAMIN (CENTRUM) TABLET PO SCH (08:42)
--- NOTE | 2017-06-14 08:42 | Gastrointestinal Progress Note ---
Assessment and Plan (1) GI bleed Status: Acute Assessment and plan: 06/13-no overt bleeding reported. H&H down slightly at 7.7/26.2. Endoscopy results noted. Can consider small bowel series if patient remains in hospital overnight. Plan an addendum to followed by Dr. Fleming. 06/09-2 week history of abdominal pain with hematemesis, coffee-ground emesis, and reports of melena. No prior endoscopy in the past. Prior hospitalization earlier this week, leaving AMA. ER visit earlier this week leaving AMA. H&H on admission at 06/10. Long-term history of alcohol use. Continue to monitor serial H&H. Clear liquid diet at present time. Check stools for occult blood. Plan an addendum to followed by Dr. Fleming. Current Visit: Yes Gastroenterology - PN: Subj Interval history: CC: Anemia Patient is seen awake and alert ambulating around room. States he had a restful night and denies any abdominal pain, nausea or vomiting. Denies any overt bleeding at this time. Colonoscopy on yesterday results noted to show internal hemorrhoids. Patient states that when he lived in [place] he had continued anemia with blood transfusions but he states they never did a workup regarding this. He does not recall being seen by hematology as well but he does state he was told that he is continually losing blood by the physicians there. Abdomen is soft, nontender. Patient's H&H down slightly today is 7.7/ 26.2. He has not required blood transfusions since being admitted. Recommendations for small bowel series to be done as outpatient however if he remains inpatient this could be done on tomorrow. ROS: Denies shortness of breath or chest pain Exam (Progress Note) - Constitutional Vitals: Period Temp Pulse Resp BP Sys/Torres Pulse Ox Last 24 Hr 96.7 F-98.9 F 70-100 13-24 110-170/59-93 98-100 General appearance: normal weight, no acute distress - Head Head exam: Present: normal inspection, normocephalic - Eye Eye exam: Present: other (Lids and identified unremarkable). Absent: scleral icterus - ENT ENT exam: Present: normal exam, normal oropharynx - Neck Neck exam: Present: normal inspection - Respiratory Respiratory exam: Present: clear to auscultation bilaterally. Absent: rales, rhonchi, wheezes - Cardiovascular Cardiovascular exam: Present: regular rate and rhythm. Absent: diastolic murmur , JVD, systolic murmur - GI/Abdominal GI/Abdominal exam: Present: normal bowel sounds, soft. Absent: ascites, distended, mass, organomegaly, tenderness - Extremities Exam Extremities exam: Present: normal inspection, full ROM - Back Exam Back exam: Present: normal inspection - Neurological Exam Neurological exam: Present: alert, oriented X3 - Psychiatric Psychiatric exam: Present: normal affect, normal mood - Skin Skin exam: Present: normal color, warm, dry Results - Labs CBC & BMP: 06/14/17 06:46 06/14/17 06:46 Lab Results: I have reviewed the past 24 hour labs Specialty Discharge - Follow Up or Referrals Follow up with: Alexey Fleming MD [Physician] - (Set up out patient small bowel series to be done )
--- NOTE | 2017-06-14 14:50 | Hospitalist Progress Note ---
Hospitalist: Subjective Interval history: Patient underwent colonoscopy on yesterday. It was significant for internal hemorrhoids. He notes some SOB for the past few days. She denies any lightheadness/dizziness/cp. Exam - Constitutional Vitals: Period Temp Pulse Resp BP Sys/Torres Pulse Ox Last 24 Hr 97 F-98.9 F 64-92 18-24 132-153/81-93 98-100 General appearance: no acute distress, over weight - Eye Eye exam: Present: EOMI Pupils: Present: JEFFREY - Respiratory Respiratory exam: Present: clear to auscultation bilaterally. Absent: rales, rhonchi, other - Cardiovascular Cardiovascular exam: Present: regular rate and rhythm - GI/Abdominal GI/Abdominal exam: Present: normal bowel sounds, soft. Absent: guarding, tenderness - Extremities Exam Extremities exam: Absent: edema - Neurological Exam Neurological exam: Present: alert, oriented X3 - Psychiatric Psychiatric exam: Present: normal affect, normal mood Results - Labs CBC & BMP: 06/14/17 06:46 06/14/17 06:46 - Impressions 1. HTN: still elevated; increase norvasc; monitor 2. GIB: EGD and colo were unremarkable; noted plan for small bowel evaluation on tomorrow; on PPI; appreciate help by GI 3. Anemia: HCT are low but stable; he is SOB; since hb<8 and he is SOB, will transfuse; monitor h/h 4. Hypothyroidism: on synthroid 5. h/o cocaine abuse; current UDS positive for opiates only today Plan: as noted above; transfuse; small bowel enteroscopy tomorrow; if stable, likely d/c tomorrow or Monday Specialty Discharge - Follow Up or Referrals Follow up with: Alexey Fleming MD [Physician] - 06/23/17 8:30 am (Prior to appointment: Nothing by mouth after midnight the day of your small bowl series. Test will be at [facility] as an Outpatient procedure.)
[2017-06-14] MEDS ORDERED: SODIUM CHLORIDE 0.9% 250 ML IV PRN (14:56)
[2017-06-14 21:16] LABS: Hematocrit 29.4 VOL% (42.0-52.0); Hemoglobin 8.8 GM/DL (14.0-18.0)
[2017-06-15] MEDS: SODIUM CHLORIDE 0.9% 1,000 ML IV SCH ×2 (03:53→08:57)
[2017-06-15] MEDS: SUCRALFATE 1 GM/10 ML UDCUP PO SCH ×2 (07:01→12:49)
--- NOTE | 2017-06-15 08:34 | Gastrointestinal Progress Note ---
Assessment and Plan (1) GI bleed Status: Acute Assessment and plan: 06/16-HH 8.8/29.4, no overt bleeding. Small bowel series pending today. Plan and addendum to follow by Dr Fleming. 06/13-no overt bleeding reported. H&H down slightly at 7.7/26.2. Endoscopy results noted. Can consider small bowel series if patient remains in hospital overnight. Plan an addendum to followed by Dr. Fleming. 06/09-2 week history of abdominal pain with hematemesis, coffee-ground emesis, and reports of melena. No prior endoscopy in the past. Prior hospitalization earlier this week, leaving AMA. ER visit earlier this week leaving AMA. H&H on admission at 06/10. Long-term history of alcohol use. Continue to monitor serial H&H. Clear liquid diet at present time. Check stools for occult blood. Plan an addendum to followed by Dr. Fleming. Current Visit: Yes Gastroenterology - PN: Subj Interval history: CC: GI bleed, anemia Pt is awake and alert lying in bed, states that he is feeling much better after his blood transfusion. His HH is improved today at 06/13 following one unit of PRBC. Abdomen is soft, nontender. He is currently NPO at this time for small bowel series this morning. No overt bleeding is reported. Abdomen is soft, nontender. ROS: Denies SOB or chest pain Exam (Progress Note) - Constitutional Vitals: Period Temp Pulse Resp BP Sys/Torres Pulse Ox Last 24 Hr 96.6 F-98.2 F 59-71 18-20 133-161/72-88 90-100 General appearance: normal weight, no acute distress - Head Head exam: Present: normal inspection, normocephalic - Eye Eye exam: Present: other (lids and conjunctiva unremarkable). Absent: scleral icterus - ENT ENT exam: Present: normal exam, normal oropharynx - Neck Neck exam: Present: normal inspection - Respiratory Respiratory exam: Present: clear to auscultation bilaterally. Absent: rales, rhonchi, wheezes - Cardiovascular Cardiovascular exam: Present: regular rate and rhythm. Absent: diastolic murmur , JVD, systolic murmur - GI/Abdominal GI/Abdominal exam: Present: normal bowel sounds, soft. Absent: ascites, distended, mass, organomegaly, tenderness - Extremities Exam Extremities exam: Present: normal inspection, full ROM - Back Exam Back exam: Present: normal inspection - Neurological Exam Neurological exam: Present: alert, oriented X3 - Psychiatric Psychiatric exam: Present: normal affect, normal mood - Skin Skin exam: Present: normal color, warm, dry Results - Labs CBC & BMP: 06/14/17 20:57 06/14/17 06:46 Lab Results: I have reviewed the past 24 hour labs Specialty Discharge - Follow Up or Referrals Follow up with: Alexey Fleming MD [Physician] - 06/23/17 8:30 am (Prior to appointment: Nothing by mouth after midnight the day of your small bowl series. Test will be at [facility] as an Outpatient procedure.)
[2017-06-15] MEDS ORDERED: amLODIPine 5 MG TABLET PO SCH (09:00)
[2017-06-15 12:46] VITALS: BP 144/83
[2017-06-15] MEDS: MULTIVITAMIN (CENTRUM) TABLET PO SCH (12:49)
[2017-06-15] MEDS: FOLIC ACID 1 MG TABLET PO SCH (12:49)
[2017-06-15] MEDS: PANTOPRAZOLE 40 MG TABLET PO SCH ×2 (12:49→12:50)
[2017-06-15] MEDS: LOSARTAN 50 MG TABLET PO SCH (12:49)
--- NOTE | 2017-06-15 13:34 | Fluoroscopy Report ---
Exam: FL small bowel series Date: 06/15/2017 4:00 AM Comparison: None Indication: Iron deficiency anemia, blood in stool Technique:[Fluoroscopy, 2 minutes 23 seconds documented. 15 films were obtained. 7 films were obtained with fluoroscopy grab technique to reduce radiation dose.] Findings: The patient was given barium by mouth and multiple overhead films were obtained. The barium reaches the colon at 45 minutes. At fluoroscopy, the terminal ileum has a normal appearance. No definite small bowel pathology is identified. Increased fecal material in the colon. Small sliding-type hiatal hernia. Impression: No definite small bowel pathology is identified. Increased fecal material in colon with small hiatal hernia. PROCEDURE INTERPRETED AT [facility] DEPARTMENT OF RADIOLOGY Final Report Signed by: Dr. Michelle Marvin
--- NOTE | 2017-06-15 14:12 | Discharge Summary ---
Hospital Course - Hospital Course Hospital Course: 61 year old black male with PMHx OR, CVA, HTN, alcohol abuse, presented to the ED for c/o 2 weeks of nausea and vomiting with upper GI bleed bright red blood and coffee ground emesis. He was admitted and GI were consulted. She has also had anemia of acute GI blood loss requiring blood transfusion. Patient has long -standing history of alcohol use likely contributed to his GI bleed. He underwent EGD and colonoscopy which were grossly unremarkable. He underwent small bowel series which were also unremarkable. He had no further bleeding in the hospital. He is tolerating diet and is feeling much better and has reached maximal hospital benefit and being discharged home. - Time spent with patient Time with patient DS: Less than 30 minutes Diagnosis - Discharge Diagnosis (1) GI bleed Status: Resolved (2) Anemia Status: Resolved Specialty Discharge - Follow Up or Referrals Follow up with: Alexey Fleming MD [Physician] - (outpatient labs at [facility] for CBC in 6 weeks and send results to [facility]. No clinic appt needed.) Discharge Plan - Discharge Data Condition at Discharge: Stable Discharge Diet: advance to your usual diet Activity: resume usual activities as tolerated Hygiene: no restrictions Weight Bearing at Discharge: full weight bearing Driving: no restrictions Contact your physician if you experience:: Nausea/Vomiting, Bleeding - Discharge Medications New amLODIPine [Norvasc] 7.5 mg PO DAILY #30 tablet Losartan [Cozaar] 50 mg PO BID #60 tablet Pantoprazole Tab [Protonix Tab] 40 mg PO DAILY #30 tablet Sucralfate Liquid [Carafate Liquid] 1 gm PO ACHS #1 Discontinued Aspirin EC Tab 81 mg PO DAILY Losartan Potassium 1 tablet PO BID - Follow Up or Referral Follow Up: Alexey Fleming MD [Physician] - (outpatient labs at [facility] for CBC in 6 weeks and send results to [facility]. No clinic appt needed.) - Forms/Instructions Instructions: Upper Gastrointestinal Endoscopy (DC) Exam - Constitutional Vitals: Period Temp Pulse Resp BP Sys/Torres Pulse Ox Last 24 Hr 96.6 F-98.2 F 59-71 18-20 133-161/72-88 90-100 Exam: General: No Acute Distress HEENT: Normocephalic, atraumatic, Extra ocular movements intact Neck: Supple, No JVD Chest: Clear to auscultation B/L CV: S1 + S2 audible without murmur, gallop or rub Abd: soft, NT, Non-distended, BS + Ext: No edema Skin: No purpura, bruising or rash Rheumatologic: No Joint deformities Neurologic: Strength 5/5 all extremities, no gross sensory deficits Discharge Results Labs on day of discharge: Labs from last 24 hours 06/14/17 06/14/17 Unknown 20:57 Hgb 8.8 L Hct 29.4 L Blood Type O POSITIVE Antibody Screen Negative Crossmatch See Detail DS: Provider Date of admission: 06/09/17 11:03 Primary care physician: . No PCP Attending physician on admission: John Rios MD Consults: 06/09/17 12:01 Consult to Physician [CONS] Routine Comment: Consulting Provider: Alexey Fleming When should Consulting Provider be notified: Now Person Notified: Elizabeth Patel Date Notified: 06/09/17 Time Notified: 12:16 Consult Notification Comment: was admitted 06/07/17 for GI bleed evaluation; but left AMA prior to having scheduled GI scope by Dr Fleming Thank You 06/09/17 12:03 Consult to Case Mgmt/Social Srvs [CONS] Routine Reason for Case Mgmt/Social Srvs: Discharge Planning Discharging clinician: Ofelia Ward MD
--- NOTE | 2017-06-23 07:34 | Physician Query Form ---
CLICK EDIT DOCUMENT TO SELECT QUERY ANSWER --> OK --> SIGN Gerri Hernandez RN Clinical [employer] W) [phone] (f) [phone] [email or web address]: Make your selection(s) from the choices in EACH section by typing an "x" and enter comments in the comment section. Please use your independent medical judgment in providing your response. This request does not imply that any particular answer is desired or expected. CLINICAL INDICATORS: (Providers should not edit this section) Based on documentation of "Acute GI bleed" "Upper GI hemorrhage" "Coffee ground emesis" EGD shows Moderate sized hiatal hernia. Colonoscopy showed internal hemorrhoids. "has long-standing history of alcohol use likely contributed to his GI bleed" Transfused 1 unit PRBC. Based on the above, could you clarify the appropriate diagnosis, if significant , that supports the above abnormalities and additional evaluation, monitoring, and/or treatment rendered: ( x) Acute GI Bleeding due to history of alcohol use ( ) Acute GI Bleeding due to internal hemorrhoids ( ) Acute GI Bleeding due to other (please specify) ( ) Other, please specify: ( ) Clinically unable to determine COMMENTS: PLEASE ALSO DOCUMENT RESPONSE IN PROGRESS NOTES AND/OR DISCHARGE SUMMARY Use of terms such as suspected, likely, or probable (associated with a specific diagnosis that is being evaluated, monitored, or treated as if it exists) are acceptable and can be restated in the discharge summary if not ruled out. MTDD
== END 2017-06-15 14:33 | disposition home or self-care (01) | DRG 253 ==
LOC: N.ED 07:49 → N.EDINP 11:03 → SUATTDRO 11:03 → N.EDINP 12:02 → N.5E 12:08
PROVIDERS: ADMIT Internal Medicine; ATTEND Hospitalist